=== PATIENT | male | born 1945 | race Caucasian/White ===

== ENCOUNTER 2021-08-08 18:57 | Observation (INO) ==
[2021-08-08 19:35] LABS: Basophils # (auto) 0.05 K/uL (0-0.2); Basophils % (auto) 0.5 %; Eosinophils # (auto) 0.13 K/uL (0-0.5); Eosinophils % (auto) 1.4 %; Hematocrit (blood only) 42.5 % (42-52); Hemoglobin 14.7 g/dL (14.0-18.0); Lymphocytes # (auto) 2.02 K/uL (1.2-3.4); Lymphocytes % (auto) 21.7 %; Mean Corpuscular Hemoglobin 30.7 pg (25-34); Mean Corpuscular Hgb Conc 34.6 g/dL (32-36); Mean Corpuscular Volume 88.7 fL (80-100); Mean Platelet Volume 10.7 fL (7.4-10.4); Monocytes # (auto) 0.61 K/uL (0.11-0.59); Monocytes % (auto) 6.6 %; Neutrophils % (auto) 69.8 %; Platelet Count 175 K/uL (130-400); RDW Coefficient of Variation 13.7 % (11.5-14.5); RDW Standard Deviation 44.8 fL (36.4-46.3); Red Blood Count 4.79 M/uL (4.7-6.1); White Blood Count 9.31 K/uL (4.8-10.8)
[2021-08-08] MEDS ORDERED: OPTIRAY 320 125ml IV ONE (19:35)
[2021-08-08 19:37] LABS: iSTAT Creatinine 0.9 mg/dl (0.6-1.3); iSTAT Ionized Calcium 1.18 mmol/l (1.12-1.32)
--- NOTE | 2021-08-08 19:37 | Emergency Department Note ---
History of Present Illness General Chief complaint: Neuro Symptoms/Deficit Stated complaint: SLURRED SPEECH Time Seen by Provider: 08/08/21 19:11 History of Present Illness Provider complaint: Slurred speech Onset (ago): minute(s) (40) Associated symptoms: no chest pain, no cough, no fever/chills, no headaches, no nausea/vomiting, no shortness of breath, no syncope or no weakness 75-year-old male with history of TIA presents emergency department with slurred speech. at bedside reports that at 6:30 PM he started slurring his speech. She states by the time they got to the emergency room it resolved. She reports she is concerned that the patient had a TIA. No chest pain difficulty breathing headache fall loss of consciousness melena hematochezia nausea vomiting diarrhea or hematuria. Home Medications Medication Instructions Recorded Confirmed Type aspirin 81 mg tablet,delayed 81 mg PO DAILY 08/08/21 08/08/21 History release carvedilol 6.25 mg tablet 6.25 mg PO BID 08/08/21 08/08/21 History clopidogrel 75 mg tablet 75 mg PO DAILY 08/08/21 08/08/21 History hydrochlorothiazide 12.5 mg tablet 12.5 mg PO DAILY 08/08/21 08/08/21 History lisinopril 10 mg tablet 10 mg PO DAILY 08/08/21 08/08/21 History nitroglycerin 0.4 mg sublingual 0.4 mg SUBLINGUAL .PRN/UD PRN 08/08/21 08/08/21 History tablet (Nitrostat) omega-3 fatty acids 1,000 mg PO DAILY 08/08/21 08/08/21 History rosuvastatin 40 mg tablet (Crestor) 40 mg PO DAILY 08/08/21 08/08/21 History tamsulosin 0.4 mg capsule 0.4 mg PO DAILY 08/08/21 08/08/21 History Allergies Allergy/AdvReac Type Severity Reaction Status Date / Time No Known Allergies Allergy Unverified 08/08/21 20:31 Past Med/Surg History Medical History (Updated 08/08/21 @ 22:57 by Maxx Pereira) HLD (hyperlipidemia) HTN (hypertension) No pertinent family history TIA (transient ischemic attack) Surgical History (Updated 08/08/21 @ 19:36 by Maxx Pereira) No pertinent past surgical history Social History Smoking Status: Current every day smoker Feels Safe at Home: Yes Review of Systems A total of 10 systems reviewed and were otherwise negative Physical Exam Vital Signs Vital Signs - 24 hr 08/08/21 19:06 08/08/21 19:23 08/08/21 19:46 Temperature 36.5 C Temperature Source Temporal Artery Scan Pulse Rate 123 H Pulse Rate [Right Finger] 94 H Pulse Rhythm [Right Finger] Respiratory Rate 18 16 Respiratory Effort / Characteristics Non-Labored Spontaneous Respiratory Depth Normal Respiratory Pattern Regular Blood Pressure 146/84 H Blood Pressure [Right Arm] 137/89 Blood Pressure Mean 104 Blood Pressure Mean [Right Arm] 105 Blood Pressure Position Sitting Pulse Oximetry 93 95 94 Oxygen Delivery Method Room Air Room Air Room Air Oxygen Flow Rate 0 Sepsis Recent Fever Within 48 Hours No Sepsis New/Unexplained Change in Mental Status No Sepsis Action Taken by Nursing No Action Required 08/08/21 21:18 Temperature Temperature Source Pulse Rate Pulse Rate [Right Finger] 116 H Pulse Rhythm [Right Finger] Regular Respiratory Rate 16 Respiratory Effort / Characteristics Respiratory Depth Respiratory Pattern Blood Pressure Blood Pressure [Right Arm] 124/84 Blood Pressure Mean Blood Pressure Mean [Right Arm] 97 Blood Pressure Position Pulse Oximetry 95 Oxygen Delivery Method Room Air Oxygen Flow Rate Sepsis Recent Fever Within 48 Hours Sepsis New/Unexplained Change in Mental Status Sepsis Action Taken by Nursing Physical Exam GENERAL: He is oriented to person, place, and time. He appears well-developed and well-nourished. He does not appear distressed. HENT: Exam performed. - Head: Normocephalic and atraumatic. - Right Ear: External ear normal. No mastoid tenderness. - Left Ear: External ear normal. No mastoid tenderness. - Mouth/Throat: The oropharynx is clear and moist. No trismus in the jaw. No dental abscesses or uvula swelling. No oropharyngeal exudate or tonsillar abscesses. EYES: Conjunctivae and EOM are normal. Pupils are equal, round, and reactive to light. Right eye exhibits no discharge. Left eye exhibits no discharge. No scleral icterus. NECK: Normal range of motion. Neck supple. No JVD present. No spinous process tenderness present. No carotid bruit present. No rigidity. No tracheal deviation and normal range of motion present. No Brudzinski's sign and no Kernig's sign noted. CV: Normal rate, regular rhythm, normal heart sounds and intact distal pulses. There is no peripheral edema. Palpable radial pulses bue. PULM/CHEST: Effort normal and breath sounds normal. No respiratory distress. No stridor. He has no wheezes. He has no rales. - Chest Wall: He exhibits no tenderness. ABD: The abdomen is soft. Bowel sounds are normal. He has no distension. No mass is present. There is no tenderness. There is no rebound, no guarding, no Grubbs's sign and no tenderness at McBurney's point. Rovsig negative. MUSC/SKEL: Normal range of motion. There is no peripheral edema, tenderness or deformity. LYMPH: No cervical adenopathy. NEURO: He is alert and oriented to person, place, and time. He has normal strength. No cranial nerve deficit or sensory deficit. Coordination and gait normal. GCS eye subscore is 4. GCS verbal subscore is 5. GCS motor subscore is 6. Cerebellar tests wnl. NIHSS: 0 SKIN: Skin is warm and dry. He is not diaphoretic. PSYCH: He has a normal mood and affect. Behavior is normal. Judgment and thought content normal. Course Course 1910: The patient was evaluated in room C11. A complete history and physical exam was performed Cardiac monitoring: An order was placed for continuous cardiac monitoring. The monitor shows a rate of 90 with sinus rhythm No code stroke called at this time as the patient has an NIH stroke scale of 0 and his symptoms have completely resolved. 2115: Vital signs stable. Labs within normal limits. Imaging shows no CVA or territorial infarct. 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 I discussed these imaging findings with the [place] teleneurologist Dr. Castano who stated there is nothing to do about this aneurysm. 2204: Vital signs stable. On reassessment the patient's NIH stroke scale remains 0. Patient states he does not feel like he is slurring his words and the states she does not feel patient is slurring words at this time. reports that she does not feel comfortable taking the patient home as they just moved back to the area and did not have doctors in the area. She states that when the patient got back from CAT scan he slurred his words for a few seconds and she is concerned. [facility]. Pickett's team will be notified. Administered Medications Discontinued Medications Ioversol (Optiray 320 125ml) 120 ml IV ONCE ONE Stop: 08/08/21 19:36 Last Admin: 08/08/21 19:39 Dose: 120 ml Documented by: [id number] Medical Decision Making Laboratory Data Result diagrams: 08/08/21 19:20 08/08/21 19:20 Lab Results 08/08/21 08/08/21 08/08/21 Range/Units 19:16 19:20 19:20 WBC 9.31 (4.8-10.8) K/uL RBC 4.79 (4.7-6.1) M/uL Hgb 14.7 (14.0-18.0) g/dL POC Hgb (14.0-18.0) g/dl Hct 42.5 (42-52) % POC Hct (42-52) % MCV 88.7 (80-100) fL MCH 30.7 (25-34) pg MCHC 34.6 (32-36) g/dL RDW Std Deviation 44.8 (36.4-46.3) fL RDW Coeff of Marily 13.7 (11.5-14.5) % Plt Count 175 (130-400) K/uL MPV 10.7 H (7.4-10.4) fL Immature Gran % (Auto) 0.0 % Neut % (Auto) 69.8 % Lymph % (Auto) 21.7 % [place] % (Auto) 6.6 % Eos % (Auto) 1.4 % Baso % (Auto) 0.5 % Neut # (Auto) 6.50 (1.4-6.5) K/uL Lymph # (Auto) 2.02 (1.2-3.4) K/uL [place] # (Auto) 0.61 H (0.11-0.59) K/uL Eos # (Auto) 0.13 (0-0.5) K/uL Baso # (Auto) 0.05 (0-0.2) K/uL Immature Gran # (Auto) 0.00 (0.00-0.02) K/uL PT (9.0-12.0) Seconds INR (0.9-1.1) APTT (21.0-31.0) Seconds PTT Ratio POC Sodium (135-144) mmol/L Sodium (136-145) mmol/L POC Potassium (3.3-5.0) mmol/L Potassium (3.5-5.1) mmol/L POC Chloride (101-112) mmol/L Chloride (98-107) mmol/L Carbon Dioxide (21-32) mmol/L POC Total CO2 (24-31) mmol/L Anion Gap (3-11) POC Anion Gap (16-25) mmol/L POC BUN (7-18) mg/dl BUN (6-23) mg/dl Creatinine (0.6-1.4) mg/dl POC Creatinine (0.6-1.3) mg/dl Est Cr Clr Drug Dosing ml/min Est GFR ( Amer) ml/min Est GFR (Non-Af Amer) ml/min BUN/Creatinine Ratio (10-20) Glucose (70-99(Fasting)) mg/dl POC Glucose 130 H (70-99) mg/dl POC Glucose (other) (70-99) mg/dl Calcium (8.5-10.1) mg/dl POC Ioniz Calcium Tacos (1.12-1.32) mmol/l Magnesium (1.7-2.4) mg/dl Total Bilirubin (0.2-1.0) mg/dl AST (13-39) U/L ALT (7-52) U/L Alkaline Phosphatase (34-104) U/L Troponin I (0-0.04) ng/ml Total Protein (6.0-8.3) gm/dl Albumin (3.4-5.0) gm/dl Globulin (2.5-4.0) gm/dl Albumin/Globulin Ratio (0.9-2) Blood Type A Negative Antibody Screen NEGATIVE 08/08/21 08/08/21 08/08/21 Range/Units 19:20 19:20 19:25 WBC (4.8-10.8) K/uL RBC (4.7-6.1) M/uL Hgb (14.0-18.0) g/dL POC Hgb 15.0 (14.0-18.0) g/dl Hct (42-52) % POC Hct 44 (42-52) % MCV (80-100) fL MCH (25-34) pg MCHC (32-36) g/dL RDW Std Deviation (36.4-46.3) fL RDW Coeff of Marily (11.5-14.5) % Plt Count (130-400) K/uL MPV (7.4-10.4) fL Immature Gran % (Auto) % Neut % (Auto) % Lymph % (Auto) % [place] % (Auto) % Eos % (Auto) % Baso % (Auto) % Neut # (Auto) (1.4-6.5) K/uL Lymph # (Auto) (1.2-3.4) K/uL [place] # (Auto) (0.11-0.59) K/uL Eos # (Auto) (0-0.5) K/uL Baso # (Auto) (0-0.2) K/uL Immature Gran # (Auto) (0.00-0.02) K/uL PT 10.7 (9.0-12.0) Seconds INR 1.0 (0.9-1.1) APTT 26.4 (21.0-31.0) Seconds PTT Ratio 1.0 POC Sodium 141 (135-144) mmol/L Sodium 140 (136-145) mmol/L POC Potassium 4.0 (3.3-5.0) mmol/L Potassium 4.0 (3.5-5.1) mmol/L POC Chloride 102 (101-112) mmol/L Chloride 106 (98-107) mmol/L Carbon Dioxide 26 (21-32) mmol/L POC Total CO2 25 (24-31) mmol/L Anion Gap 8 (3-11) POC Anion Gap 19.0 (16-25) mmol/L POC BUN 24 H (7-18) mg/dl BUN 24 H (6-23) mg/dl Creatinine 0.94 (0.6-1.4) mg/dl POC Creatinine 0.9 (0.6-1.3) mg/dl Est Cr Clr Drug Dosing 72.3 ml/min Est GFR ( Amer) 92.9 ml/min Est GFR (Non-Af Amer) 80.1 ml/min BUN/Creatinine Ratio 25.5 H (10-20) Glucose 130 H (70-99(Fasting)) mg/dl POC Glucose (70-99) mg/dl POC Glucose (other) 134 H (70-99) mg/dl Calcium 9.1 (8.5-10.1) mg/dl POC Ioniz Calcium Tacos 1.18 (1.12-1.32) mmol/l Magnesium 1.9 (1.7-2.4) mg/dl Total Bilirubin 0.4 (0.2-1.0) mg/dl AST 16 (13-39) U/L ALT 13 (7-52) U/L Alkaline Phosphatase 46 (34-104) U/L Troponin I 0.03 (0-0.04) ng/ml Total Protein 6.7 (6.0-8.3) gm/dl Albumin 4.3 (3.4-5.0) gm/dl Globulin 2.4 L (2.5-4.0) gm/dl Albumin/Globulin Ratio 1.8 (0.9-2) Blood Type Antibody Screen Imaging Data Radiologist's Impression: Chest X-Ray 08/08/21 19:17 XR chest 1V portable HISTORY: Slurred speech. Facial droop. COMPARISON: None. FINDINGS: There is mild elevation the right hemidiaphragm. The heart is mildly enlarged. A few bibasilar linear densities favor subsegmental atelectasis. Othe rwise, no focal lung consolidations to suggest pneumonia. No evidence for pulmonary edema. No pleural effusions, no pneumothorax. IMPRESSION: Mild cardiomegaly. Otherwise, no acute process within the chest. ACT 112: Negative or not required by law. Electronically signed by: Waqar Shah M.D. 08/08/2021 7:[address] 08/08/21 19:[address] DOSE: HISTORY: Slurred speech. Facial droop. Stroke Like Symptoms TECHNIQUE: Multiaxial CT images of the head were performed without the use of intravenous contrast. Automated exposure control was utilized for this study. A dose lowering technique was utilized adhering to the principles of ALARA. Comparison: None. Findings: The paranasal sinuses and mastoid air cells are clear. The calvarium and skull base are intact. The ventricles and sulci are within normal limits. There is no mass, hematoma, midline shift, or acute infarct. Impression: No acute intracranial abnormality. ACT 112: Negative or not required by law. Electronically signed by: Waqar Shah M.D. 08/08/2021 8:07 PM Head CTA 08/08/21 19:17 HEAD & NECK CTA HISTORY: Slurred speech. Facial droop. Stroke Like Symptoms TECHNIQUE: Multiaxial CT images of the head were performed following the intravenous administration of contrast to evaluate the major cerebral vessels. Multiaxial CT images of the neck were also performed following the intravenous administration of contrast to evaluate the major cervical vessels. Maximum intensity projection images were also obtained. A dose lowering technique was utilized adhering to the principles of ALARA. COMPARISON: None. FINDINGS: There is no mass, hematoma, midline shift, or acute infarct. Visualized intracranial internal carotid arteries, distal vertebral arteries, and basilar artery are widely patent. There is no significant stenosis or occlusion seen within the bilateral ACAs, MCAs, or vaccine specialist. Major dural venous sinuses are patent. There is a 4 mm right MCA bifurcation aneurysm best seen on axial image 95. The aortic arch and proximal great vessels are widely patent. There is no significant stenosis, occlusion, or dissection identified within the bilateral common carotid, internal carotid, or vertebral arteries. Best seen on axial image 208 there is a 1 cm polyp within the posterior hypopharynx at the level of the epiglottis. IMPRESSION: 1. No significant stenosis or occlusion within the [place]. 2. No significant stenosis, occlusion, or dissection identified within the carotid or vertebral arteries. 3. 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 4. A 1 cm polyp within the posterior hypopharynx at the level of the epiglottis. Direct visualization recommended for further evaluation. ACT 112: Negative or not required by law. Electronically signed by: Waqar Shah M.D. 08/08/2021 8:15 PM Neck CTA 08/08/21 19:17 HEAD & NECK CTA HISTORY: Slurred speech. Facial droop. Stroke Like Symptoms TECHNIQUE: Multiaxial CT images of the head were performed following the intravenous administration of contrast to evaluate the major cerebral vessels. Multiaxial CT images of the neck were also performed following the intravenous administration of contrast to evaluate the major cervical vessels. Maximum inte nsity projection images were also obtained. A dose lowering technique was utilized adhering to the principles of ALARA. COMPARISON: None. FINDINGS: There is no mass, hematoma, midline shift, or acute infarct. Visualized intracranial internal carotid arteries, distal vertebral arteries, and basilar artery are widely patent. There is no significant stenosis or occlusion seen within the bilateral ACAs, MCAs, or vaccine specialist. Major dural venous sinuses are patent. There is a 4 mm right MCA bifurcation aneurysm best seen on axial image 95. The aortic arch and proximal great vessels are widely patent. There is no significant stenosis, occlusion, or dissection identified within the bilateral common carotid, internal carotid, or vertebral arteries. Best seen on axial image 208 there is a 1 cm polyp within the posterior hypopharynx at the level of the epiglottis. IMPRESSION: 1. No significant stenosis or occlusion within the [place]. 2. No significant stenosis, occlusion, or dissection identified within the carotid or vertebral arteries. 3. 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 4. A 1 cm polyp within the posterior hypopharynx at the level of the epiglottis. Direct visualization recommended for further evaluation. ACT 112: Negative or not required by law. Electronically signed by: Waqar Shah M.D. 08/08/2021 8:15 PM ECG Data Indication: + weakness Rate (beats per minute): 98 Rhythm: + normal sinus ECG Intervals/blocks: + Normal QRS, + Normal NH and + Normal QT-c ECG ST segments: + Normal ST segments MDM Narrative 1910: The patient was evaluated in room C11. A complete history and physical exam was performed Cardiac monitoring: An order was placed for continuous cardiac monitoring. The monitor shows a rate of 90 with sinus rhythm No code stroke called at this time as the patient has an NIH stroke scale of 0 and his symptoms have completely resolved. 2115: Vital signs stable. Labs within normal limits. Imaging shows no CVA or territorial infarct. 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 I discussed these imaging findings with the [place] teleneurologist Dr. Castano who stated there is nothing to do about this aneurysm. 2204: Vital signs stable. On reassessment the patient's NIH stroke scale remains 0. Patient states he does not feel like he is slurring his words and the states she does not feel patient is slurring words at this time. reports that she does not feel comfortable taking the patient home as they just moved back to the area and did not have doctors in the area. She states that when the patient got back from CAT scan he slurred his words for a few seconds and she is concerned. Patient be admitted to the [facility] any hospitalist team for TIA. Dr. Pickett's team will be notified. Impression & Plan Brain TIA Discharge Plan Visit Data Chief Complaint: Neuro Symptoms/Deficit Stated Complaint: SLURRED SPEECH Discharge Problem: Brain TIA Patient Disposition: Admitted As Inpatient Forms Stand Alone Forms: [facility] Prescriptions Prescriptions: No Action clopidogrel 75 mg tablet 75 mg PO DAILY RF: 0 aspirin [Aspir-Low] 81 mg Tablet,Delayed Release (Dr/Ec) 81 mg PO DAILY RF: 0 nitroglycerin [Nitrostat] 0.4 mg tablet, sublingual 0.4 mg sublingual .PRN/UD PRN (Reason: Chest Pain) RF: 0 lisinopril 10 mg tablet 10 mg PO DAILY RF: 0 rosuvastatin [Crestor] 40 mg tablet 40 mg PO DAILY RF: 0 [place] 3 Fish Oil Concentrate Capsule 1,000 mg PO DAILY RF: 0 tamsulosin 0.4 mg Capsule 0.4 mg PO DAILY RF: 0 hydrochlorothiazide 12.5 mg Tablet 12.5 mg PO DAILY RF: 0 carvedilol 6.25 mg Tablet 6.25 mg PO BID RF: 0 Referrals Referrals: PCP,NO [Primary Care Provider] -
[2021-08-08 19:45] LABS: Partial Thromboplastin Time 26.4 Seconds (21.0-31.0); Prothrombin Time 10.7 Seconds (9.0-12.0)
[2021-08-08 19:59] LABS: Troponin I 0.03 ng/ml (0-0.04)
--- NOTE | 2021-08-08 20:01 | XRay Report ---
XR chest 1V portable HISTORY: Slurred speech. Facial droop. COMPARISON: None. FINDINGS: There is mild elevation the right hemidiaphragm. The heart is mildly enlarged. A few bibasi lar linear densities favor subsegmental atelectasis. Otherwise, no focal lung consolidations to sugge st pneumonia. No evidence for pulmonary edema. No pleural effusions, no pneumothorax. IMPRESSION: Mild cardiomegaly. Otherwise, no acute process within the chest. ACT 112: Negative or not required by law. Electronically signed by: Waqar Shah M.D. 08/08/2021 7:59 PM
--- NOTE | 2021-08-08 20:09 | CT Scan Report ---
HEAD CT NONCONTRAST CT DOSE: HISTORY: Slurred speech. Facial droop. Stroke Like Symptoms TECHNIQUE: Multiaxial CT images of the head were performed without the use of intravenous contrast. A utomated exposure control was utilized for this study. A dose lowering technique was utilized adheri ng to the principles of ALARA. Comparison: None. Findings: The paranasal sinuses and mastoid air cells are clear. The calvarium and skull base are int act. The ventricles and sulci are within normal limits. There is no mass, hematoma, midline shift, or acute infarct. Impression: No acute intracranial abnormality. ACT 112: Negative or not required by law. Electronically signed by: Waqar Shah M.D. 08/08/2021 8:07 PM
[2021-08-08 20:18] LABS: Albumin Globulin Ratio 1.8 (0.9-2); Albumin Level 4.3 gm/dl (3.4-5.0); BUN Creatinine Ratio 25.5 (10-20); Bilirubin,Total 0.4 mg/dl (0.2-1.0); Calcium 9.1 mg/dl (8.5-10.1); Creatinine Clr Calc Pharmacy 72.3 ml/min; Est GFR (African American) 92.9 ml/min; Est GFR (Non-African American) 80.1 ml/min; Globulin 2.4 gm/dl (2.5-4.0); Magnesium 1.9 mg/dl (1.7-2.4); Total Protein 6.7 gm/dl (6.0-8.3)
--- NOTE | 2021-08-08 20:18 | CT Scan Report ---
HEAD & NECK CTA HISTORY: Slurred speech. Facial droop. Stroke Like Symptoms TECHNIQUE: Multiaxial CT images of the head were performed following the intravenous administration o f contrast to evaluate the major cerebral vessels. Multiaxial CT images of the neck were also perform ed following the intravenous administration of contrast to evaluate the major cervical vessels. Maxim um intensity projection images were also obtained. A dose lowering technique was utilized adhering to the principles of ALARA. COMPARISON: None. FINDINGS: There is no mass, hematoma, midline shift, or acute infarct. Visualized intracranial internal carotid arteries, distal vertebral arteries, and basilar artery are widely patent. There is no significant s tenosis or occlusion seen within the bilateral ACAs, MCAs, or jewelry salesperson. Major dural venous sinuses are pa tent. There is a 4 mm right MCA bifurcation aneurysm best seen on axial image 95. The aortic arch and proximal great vessels are widely patent. There is no significant stenosis, occ lusion, or dissection identified within the bilateral common carotid, internal carotid, or vertebral arteries. Best seen on axial image 208 there is a 1 cm polyp within the posterior hypopharynx at the level of the epiglottis. IMPRESSION: 1. No significant stenosis or occlusion within the [place]. 2. No significant stenosis, occlusion, or dissection identified within the carotid or vertebral arter ies. 3. 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 4. A 1 cm polyp within the posterior hypopharynx at the level of the epiglottis. Direct visualization recommended for further evaluation. ACT 112: Negative or not required by law. Electronically signed by: Waqar Shah M.D. 08/08/2021 8:15 PM
--- NOTE | 2021-08-08 20:18 | CT Scan Report ---
HEAD & NECK CTA HISTORY: Slurred speech. Facial droop. Stroke Like Symptoms TECHNIQUE: Multiaxial CT images of the head were performed following the intravenous administration o f contrast to evaluate the major cerebral vessels. Multiaxial CT images of the neck were also perform ed following the intravenous administration of contrast to evaluate the major cervical vessels. Maxim um intensity projection images were also obtained. A dose lowering technique was utilized adhering to the principles of ALARA. COMPARISON: None. FINDINGS: There is no mass, hematoma, midline shift, or acute infarct. Visualized intracranial internal carotid arteries, distal vertebral arteries, and basilar artery are widely patent. There is no significant s tenosis or occlusion seen within the bilateral ACAs, MCAs, or weed controller. Major dural venous sinuses are pa tent. There is a 4 mm right MCA bifurcation aneurysm best seen on axial image 95. The aortic arch and proximal great vessels are widely patent. There is no significant stenosis, occ lusion, or dissection identified within the bilateral common carotid, internal carotid, or vertebral arteries. Best seen on axial image 208 there is a 1 cm polyp within the posterior hypopharynx at the level of the epiglottis. IMPRESSION: 1. No significant stenosis or occlusion within the [place]. 2. No significant stenosis, occlusion, or dissection identified within the carotid or vertebral arter ies. 3. 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 4. A 1 cm polyp within the posterior hypopharynx at the level of the epiglottis. Direct visualization recommended for further evaluation. ACT 112: Negative or not required by law. Electronically signed by: Waqar Shah M.D. 08/08/2021 8:15 PM
--- NOTE | 2021-08-08 22:56 | History & Physical Report ---
Date of Service August 08, 2021 Assessment & Plan (1) Slurred speech: Plan: Slurred speech/new TIA- The patient will be admitted to telemetry for serial cardiac enzymes, serial EKG's, cardiac rhythm monitoring and a 2-D echocardiogram with Dopplers. CT head negative, CTA head neck significant for 4 mm right MCA bifurcation aneurysm. Order MRI of brain without contrast, and MRA of head without contrast, to be done about [address] TIA without thrombolytics order set (2) Brain TIA: Plan: History of previous brain TIA approximately 4 years ago, with symptoms had completely resolved (3) BPH w urinary obs/LUTS: Plan: Continue tamsulosin 0.4 mg in the evening (4) Tobacco use disorder: Plan: Smokes 1 pack/day Cessation counseling (5) HLD (hyperlipidemia): Plan: Continue rosuvastatin 40 mg daily (6) HTN (hypertension): Plan: Continue carvedilol 6.25 mg p.o. twice daily, HCTZ and lisinopril History of Present Illness Chief Complaint: The patient presents to the emergency department with acute onset of slurred speech, of brief duration, that his noted after he came in from outdoors where he was having a smoke Primary Care Provider: NO PCP The patient is a 75-year-old male with a past medical history including hyperlipidemia, BPH with LUTS, hypertension, and a TIA about 4 years ago, with symptoms that completely resolved, and presents with similar but more severe symptoms this evening. The patient continues to smoke 1 pack/day, and as noted without side having a smoke, when upon coming inside, his noted that he had a slurred speech, that did completely resolved. He has been taking all his medications as directed. He had no other symptoms such as weakness in extremities or loss of sensation, difficulty swallowing. Allergies Allergy/AdvReac Type Severity Reaction Status Date / Time No Known Allergies Allergy Unverified 08/08/21 20:31 Home Medications Medication Instructions Recorded Confirmed Type aspirin 81 mg tablet,delayed 81 mg PO DAILY 08/08/21 08/08/21 History release carvedilol 6.25 mg tablet 6.25 mg PO BID 08/08/21 08/08/21 History clopidogrel 75 mg tablet 75 mg PO DAILY 08/08/21 08/08/21 History hydrochlorothiazide 12.5 mg tablet 12.5 mg PO DAILY 08/08/21 08/08/21 History lisinopril 10 mg tablet 10 mg PO DAILY 08/08/21 08/08/21 History nitroglycerin 0.4 mg sublingual 0.4 mg SUBLINGUAL .PRN/UD PRN 08/08/21 08/08/21 History tablet (Nitrostat) omega-3 fatty acids 1,000 mg PO DAILY 08/08/21 08/08/21 History rosuvastatin 40 mg tablet (Crestor) 40 mg PO DAILY 08/08/21 08/08/21 History tamsulosin 0.4 mg capsule 0.4 mg PO DAILY 08/08/21 08/08/21 History Past Med/Surg History Medical History (Updated 08/09/21 @ 02:22 by Alonzo Lopez MD) BPH w urinary obs/LUTS HLD (hyperlipidemia) HTN (hypertension) No pertinent family history TIA (transient ischemic attack) Tobacco use disorder Surgical History (Updated 08/08/21 @ 19:36 by Maxx Pereira) No pertinent past surgical history Social History Smoking Status: Current every day smoker Hx Alcohol Use: No Hx Substance Use: No Preferred Language: Latvian Communication Ability: Effective Legislative Advocate Required: No Beliefs That Will Affect Care: None Current Living Situation: Spouse Other Information That Helps Us Care for You: No Feels Safe at Home: Yes Safety Concerns: Feels Safe At This Time Review of Systems Review of Systems: The patient denies chest pain, palpitations, shortness of breath, dyspnea on exertion, cough, lower extremity swelling, sore throat, fevers, chills, sweats, weight change, fatigue, nausea, vomiting, diarrhea , constipation, abdominal pain, pelvic pain, blood in urine or stool, dysuria, urinary frequency or urgency, lightheadedness, dizziness, headache, memory loss, loss of consciousness, rash, abnormal bruising or bleeding, imbalance, focal or generalized weakness, numbness or tingling in arms or legs, generalized arthralgias or myalgias, back or neck pain, or night sweats. The review of systems is otherwise negative other than for that already noted above, and at least 10 systems have been reviewed. Physical Exam Physical Exam: The patient is awake, alert and oriented 3, well developed and well nourished, normocephalic and atraumatic, lying in bed and in no acute distress. HEENT--PERRL, EOMI, mucous membranes and oropharynx normal. Neck--supple. No JVD. No bruits. Thyroid normal, trachea midline, no adenopathy. Heart--normal S1 and S2. No murmurs, rubs or gallops. Lungs--clear bilaterally, no respiratory distress, no accessory muscle use. Abdomen--normal bowel sounds and soft. Nontender. Nondistended, no hernias or masses, no organomegaly. Extremities--no cyanosis or clubbing. No edema. Dermatologic--normal skin turgor, normal color, no abnormal lymph nodes, no rash. Neurologic--cranial nerves II through XII grossly intact. Rheumatologic--normal range of motion. Psychiatric--normal affect. Results & Data Results & Data ([facility]) Vital Signs (Past 12 Hours) Vital Signs Temp Pulse Pulse Resp BP BP Pulse Ox 08/08/21 21:18 116 H 16 124/84 95 08/08/21 19:46 94 08/08/21 19:23 94 H 16 137/89 95 08/08/21 19:06 36.5 C 123 H 18 146/84 H 93 Laboratory Results Laboratory Results WBC 9.31 K/uL (4.8-10.8) 08/08/21 19: RBC 4.79 M/uL (4.7-6.1) 08/08/21 19:20 Hgb 14.7 g/dL (14.0-18.0) 08/08/21 19:20 POC Hgb 15.0 g/dl (14.0-18.0) 08/08/21 19:25 Hct 42.5 % (42-52) 08/08/21 19:20 POC Hct 44 % (42-52) 08/08/21 19:25 MCV 88.7 fL (80-100) 08/08/21 19: MCH 30.7 pg (25-34) 08/08/21 19:20 MCHC 34.6 g/dL (32-36) 08/08/21 19:20 RDW Std Deviation 44.8 fL (36.4-46.3) 08/08/21 19:20 RDW Coeff of Marily 13.7 % (11.5-14.5) 08/08/21: Plt Count 175 K/uL (130-400) 08/08/21 19:20 MPV 10.7 fL (7.4-10.4) H 08/08/21 19:20 Immature Gran % (Auto) 0.0 % 08/08/21 19:20 Neut % (Auto) 69.8 % 08/08/21 19:20 Lymph % (Auto) 21.7 % 08/08/21 19:20 [place]un % (Auto) 6.6 % 08/08/21 19:20 Eos % (Auto) 1.4 % 08/08/21 19:20 Baso % (Auto) 0.5 % 08/08/21 19:20 Neut # (Auto) 6.50 K/uL (1.4-6.5) 08/08/21: Lymph # (Auto) 2.02 K/uL (1.2-3.4) 08/08/21 19:20 [place]un # (Auto) 0.61 K/uL (0.11-0.59) H 08/08/21 19:20 Eos # (Auto) 0.13 K/uL (0-0.5) 08/08/21:20 Baso # (Auto) 0.05 K/uL (0-0.2) 08/08/21 19:20 Immature Gran # (Auto) 0.00 K/uL (0.00-0.02) 08/08/21:20 PT 10.7 Seconds (9.0-12.0) 08/08/21 19:20 INR 1.0 (0.9-1.1) 08/08/21 19:20 APTT 26.4 Seconds (21.0-31.0) 08/08/21 19:20 PTT Ratio 1.0 08/08/21 19:20 POC Sodium 141 mmol/L (135-144) 08/08/21 19:25 Sodium 140 mmol/L (136-145) 08/08/21:20 POC Potassium 4.0 mmol/L (3.3-5.0) 08/08/21 19:25 Potassium 4.0 mmol/L (3.5-5.1) 08/08/21 19:20 POC Chloride 102 mmol/L (101-112) 08/08/21 19:25 Chloride 106 mmol/L (98-107) 08/08/21 19:20 Carbon Dioxide 26 mmol/L (21-32) 08/08/21 19:20 POC Total CO2 25 mmol/L (24-31) 08/08/21 19:25 Anion Gap 8 (3-11) 08/08/21 19:20 POC Anion Gap 19.0 mmol/L (16-25) 08/08/21 19:25 POC BUN 24 mg/dl (7-18) H 08/08/21 19:25 BUN 24 mg/dl (6-23) H 08/08/21 19:20 Creatinine 0.94 mg/dl (0.6-1.4) 08/08/21 19:20 POC Creatinine 0.9 mg/dl (0.6-1.3) 08/08/21 19:25 Est Cr Clr Drug Dosing 72.3 ml/min 08/08/21 19:20 Est GFR ( Amer) 92.9 ml/min 08/08/21 19:20 Est GFR (Non-Af Amer) 80.1 ml/min 08/08/21 19:20 BUN/Creatinine Ratio 25.5 (10-20) H 08/08/21 19:20 Glucose 130 mg/dl (70-99(Fasting)) H 08/08/21 19:20 POC Glucose 130 mg/dl (70-99) H 08/08/21 19:16 POC Glucose (other) 134 mg/dl (70-99) H 08/08/21 19:25 Calcium 9.1 mg/dl (8.5-10.1) 08/08/21 19:20 POC Ioniz Calcium Atcos 1.18 mmol/l (1.12-1.32) 08/08/21 19:25 Magnesium 1.9 mg/dl (1.7-2.4) 08/08/21 19:20 Total Bilirubin 0.4 mg/dl (0.2-1.0) 08/08/21 19:20 AST 16 U/L (13-39) 08/08/21 19:20 ALT 13 U/L (7-52) 08/08/21 19:20 Alkaline Phosphatase 46 U/L (34-104) 08/08/21 19:20 Troponin I 0.03 ng/ml (0-0.04) 03/15/22 19:20 Total Protein 6.7 gm/dl (6.0-8.3) 08/08/21 19:20 Albumin 4.3 gm/dl (3.4-5.0) 08/08/21 19:20 Globulin 2.4 gm/dl (2.5-4.0) L 08/08/21 19:20 Albumin/Globulin Ratio 1.8 (0.9-2) 08/08/21 19:20 SARS-CoV-2, RNA, NAAT NEGATIVE (NEGATIVE) 08/08/21 Unknown Blood Type A Negative 08/08/21 19:20 Antibody Screen NEGATIVE 08/08/21 19:20 Impressions Chest X-Ray 08/08/21 19:17 XR chest 1V portable HISTORY: Slurred speech. Facial droop. COMPARISON: None. FINDINGS: There is mild elevation the right hemidiaphragm. The heart is mildly enlarged. A few bibasilar linear densities favor subsegmental atelectasis. Otherwise, no focal lung consolidations to suggest pneumonia. No evidence for pulmonary edema. No pleural effusions, no pneumothorax. IMPRESSION: Mild cardiomegaly. Otherwise, no acute process within the chest. ACT 112: Negative or not required by law. Electronically signed by: Waqar Shah M.D. 08/08/2021 7:[address] 08/08/21 19:[address] DOSE: HISTORY: Slurred speech. Facial droop. Stroke Like Symptoms TECHNIQUE: Multiaxial CT images of the head were performed without the use of intravenous contrast. Automated exposure control was utilized for this study. A dose lowering technique was utilized adhering to the principles of ALARA. Comparison: None. Findings: The paranasal sinuses and mastoid air cells are clear. The calvarium and skull base are intact. The ventricles and sulci are within normal limits. There is no mass, hematoma, midline shift, or acute infarct. Impression: No acute intracranial abnormality. ACT 112: Negative or not required by law. Electronically signed by: Waqar Shah M.D. 08/08/2021 8:07 PM Head CTA 08/08/21 19:17 HEAD & NECK CTA HISTORY: Slurred speech. Facial droop. Stroke Like Symptoms TECHNIQUE: Multiaxial CT images of the head were performed following the intravenous administration of contrast to evaluate the major cerebral vessels. Multiaxial CT images of the neck were also performed following the intravenous administration of contrast to evaluate the major cervical vessels. Maximum intensity projection images were also obtained. A dose lowering technique was utilized adhering to the principles of ALARA. COMPARISON: None. FINDINGS: There is no mass, hematoma, midline shift, or acute infarct. Visualized intracranial internal carotid arteries, distal vertebral arteries, and basilar artery are widely patent. There is no significant stenosis or occlusion seen within the bilateral ACAs, MCAs, or oil field equipment mechanic. Major dural venous sinuses are patent. There is a 4 mm right MCA bifurcation aneurysm best seen on axial image 95. The aortic arch and proximal great vessels are widely patent. There is no significant stenosis, occlusion, or dissection identified within the bilateral common carotid, internal carotid, or vertebral arteries. Best seen on axial image 208 there is a 1 cm polyp within the posterior hypopharynx at the level of the epiglottis. IMPRESSION: 1. No significant stenosis or occlusion within the [place]. 2. No significant stenosis, occlusion, or dissection identified within the carotid or vertebral arteries. 3. 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 4. A 1 cm polyp within the posterior hypopharynx at the level of the epiglottis. Direct visualization recommended for further evaluation. ACT 112: Negative or not required by law. Electronically signed by: Waqar Shah M.D. 08/08/2021 8:15 PM Neck CTA 08/08/21 19:17 HEAD & NECK CTA HISTORY: Slurred speech. Facial droop. Stroke Like Symptoms TECHNIQUE: Multiaxial CT images of the head were performed following the intravenous administration of contrast to evaluate the major cerebral vessels. Multiaxial CT images of the neck were also performed following the intravenous administration of contrast to evaluate the major cervical vessels. Maximum intensity projection images were also obtained. A dose lowering technique was utilized adhering to the principles of ALARA. COMPARISON: None. FINDINGS: There is no mass, hematoma, midline shift, or acute infarct. Visualized intracranial internal carotid arteries, distal vertebral arteries, and basilar artery are widely patent. There is no significant stenosis or occlusion seen within the bilateral ACAs, MCAs, or oil field equipment mechanic. Major dural venous sinuses are patent. There is a 4 mm right MCA bifurcation aneurysm best seen on axial image 95. The aortic arch and proximal great vessels are widely patent. There is no significant stenosis, occlusion, or dissection identified within the bilateral common carotid, internal carotid, or vertebral arteries. Best seen on axial image 208 there is a 1 cm polyp within the posterior hypopharynx at the level of the epiglottis. IMPRESSION: 1. No significant stenosis or occlusion within the [place]. 2. No significant stenosis, occlusion, or dissection identified within the carotid or vertebral arteries. 3. 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 4. A 1 cm polyp within the posterior hypopharynx at the level of the epiglottis. Direct visualization recommended for further evaluation. ACT 112: Negative or not required by law. Electronically signed by: Waqar Shah M.D. 08/08/2021 8:15 PM Code Status & VTE Plan Code Status Full code VTE Prophylaxis Plan VTE Prophylaxis will be ordered: Yes PG Care Time/CCT Total # of Minutes Spent Total Time Spent with Patient: Total time spent is greater than 50% in coordination of care (as documented) at patient's floor/unit and/or counseling patient: Coding Level of Care Code INT OBSERVATION CARE 70M LVL 3 Diagnoses BPH w urinary obs/LUTS N40.1; N13.8 Tobacco use disorder F17.200 Brain TIA G45.9 HLD (hyperlipidemia) E78.5 HTN (hypertension) I10 Slurred speech R47.81
[2021-08-09] MEDS ORDERED: ACETAMINOPHEN 325 MG TAB PO PRN (00:50)
[2021-08-09] MEDS ORDERED: ONDANSETRON INJ 2 MG/ML 2 ML VIAL IV PRN (00:50)
[2021-08-09] MEDS ORDERED: PHARMACIST DISCHARGE MED REC CONSULT PRN (00:50)
[2021-08-09] MEDS ORDERED: NITROGLYCERIN SL 0.4 MG/TAB TAB SL PRN (00:50)
[2021-08-09] MEDS ORDERED: NSS + 20MEQ KCL 20 MEQ/1,000 ML BAG IV SCH (01:15)
--- NOTE | 2021-08-09 06:55 | Magnetic Resonance Report ---
MRI OF THE BRAIN WITHOUT IV CONTRAST CLINICAL HISTORY: Transient ischemic attack. COMPARISON STUDY: CT of the brain dated 08/08/2021. TECHNIQUE: MRI of the brain was performed utilizing various T1 and T2-weighted sequences in the axial , sagittal, and coronal planes. IV contrast was not administered for this examination. FINDINGS: Brain parenchyma: There is age-related involutional change noting minimal microangiopathic disease. T here is no hemorrhage or mass effect. There is no restricted diffusion to suggest acute ischemia. Gra y-white matter differentiation is preserved. No extra-axial fluid collection is seen. The cerebellar tonsils are normal in configuration. Ventricles, sulci, and cisterns: Prominent secondary to involutional change. Pituitary and sella: Unremarkable. Intracranial vasculature: Normal flow voids are maintained at the skull base. Orbits: The bony orbits are grossly intact. Orbital contents are normal in appearance. Sinuses and mastoids: Clear. Calvarium: Unremarkable. Cervical cord: Partially visualized cervical spinal cord is normal in morphology and signal intensity . Soft tissues: A 1.3 cm sebaceous cyst overlies the right parotid gland. IMPRESSION: No acute intracranial abnormality. ACT 112: Negative or not required by law. Electronically signed by: Eduar Reynaga M.D. 08/09/2021 6:54 AM
--- NOTE | 2021-08-09 06:59 | Magnetic Resonance Report ---
MRA OF THE INTRACRANIAL CIRCULATION WITHOUT CONTRAST CLINICAL HISTORY: Transient ischemic attack. Slurred speech. COMPARISON STUDY: Head CT and CTA of the head August 08, 2021. TECHNIQUE: Utilizing a 1.5 [place] magnet and 3-D [id number] technique, unenhanced MRA of the intra cranial circulation was obtained. FINDINGS: The bilateral M1, M2, A1 and A2 segments are patent. This exam is mildly compromised by mot ion artifact. The 4 mm right MCA bifurcation aneurysm shown on CTA of the head of August 08, 2014 is n ot well visualized on this exam. This may be due to motion artifact. No central vessel occlusion is i dentified. Posterior circulation is intact. IMPRESSION: 1. No central vessel occlusion. 2. The 4 mm right MCA bifurcation aneurysm shown on CTA of August 08, 2021 is not well visualized on t his exam, possibly due to motion artifact. ACT 112: Negative or not required by law. Electronically signed by: Tamir Vanegas M.D. 08/09/2021 6:58 AM
[2021-08-09 07:11] LABS: Basophils # (auto) 0.04 K/uL (0-0.2); Basophils % (auto) 0.5 %; Eosinophils # (auto) 0.12 K/uL (0-0.5); Eosinophils % (auto) 1.6 %; Hematocrit (blood only) 39.7 % (42-52); Hemoglobin 13.5 g/dL (14.0-18.0); Lymphocytes # (auto) 1.01 K/uL (1.2-3.4); Lymphocytes % (auto) 13.8 %; Mean Corpuscular Volume 88.2 fL (80-100); Mean Platelet Volume 10.1 fL (7.4-10.4); Monocytes # (auto) 0.72 K/uL (0.11-0.59); Monocytes % (auto) 9.8 %; Neutrophils # (auto) 5.43 K/uL (1.4-6.5); Neutrophils % (auto) 74.3 %; Platelet Count 149 K/uL (130-400); RDW Coefficient of Variation 13.8 % (11.5-14.5); White Blood Count 7.32 K/uL (4.8-10.8)
[2021-08-09 07:29] LABS: Estimated Average Glucose 140 mg/dl; Hemoglobin A1C 6.5 % (4.5-5.6)
[2021-08-09 07:34] LABS: Troponin I 0.03 ng/ml (0-0.04)
[2021-08-09 07:35] LABS: BUN Creatinine Ratio 22.7 (10-20); Calcium 8.5 mg/dl (8.5-10.1); Chol HDL Ratio 3.1 (0-5); Creatinine Clr Calc Pharmacy 77.2 ml/min; Est GFR (African American) 98.8 ml/min; Est GFR (Non-African American) 85.2 ml/min; Potassium 4.2 mmol/L (3.5-5.1)
[2021-08-09] MEDS ORDERED: ASPIRIN 81 MG ECTAB PO SCH (09:00)
[2021-08-09] MEDS ORDERED: ROSUVASTATIN CALCIUM 20 MG TAB PO SCH (09:00)
[2021-08-09] MEDS ORDERED: lisinopril 10 MG TAB PO SCH (09:00)
[2021-08-09] MEDS ORDERED: TAMSULOSIN HCL 0.4 MG CAP PO SCH (09:00)
[2021-08-09] MEDS ORDERED: hydroCHLOROthiazide 25 MG TAB PO SCH (09:00)
[2021-08-09] MEDS ORDERED: OMEGA-3 (PURIFIED FISH OIL) 1 GM CAP PO SCH (09:00)
[2021-08-09] MEDS ORDERED: CLOPIDOGREL BISULFATE 75 MG TAB PO SCH (09:00)
[2021-08-09] MEDS ORDERED: carvediloL 6.25 MG TAB PO SCH (09:00)
[2021-08-09] MEDS ORDERED: ENOXAPARIN INJ 40 MG/0.4 ML SYR SQ SCH (09:00)
--- NOTE | 2021-08-09 09:46 | Neurology Consultation ---
Date of Consultation August 09, 2021 Assessment & Plan (1) Brain TIA: (2) Slurred speech: (3) Cerebral aneurysm, nonruptured: This patient had a brief episode of dysarthria and possible right facial droop with left hand tingling that has all resolved. This is consistent with a transient ischemic attack most likely in the anat secondary to small vessel ischemic disease. Currently his neurologic examination is nonfocal without meningeal signs or encephalopathy. He has no subjective symptoms currently. Risk factors for stroke include long-standing continued cigarette smoking and the history of hypertension (reasonably well controlled but a little high when he came the emergency room). His glucose is mildly high with an elevated hemoglobin A1c of 6.5. He does have a history of dyslipidemia but his lipids are nicely controlled on his current dose of rosuvastatin. 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 This is small and has a very low risk of rupture or progression (an incidental finding). Recommendations: 1. Stop cigarette smoking. I informed the patient that unless he stops smoking we are are likely not going to be able to help prevent strokes and TIAs even with medication. 2. add 81 milligram aspirin to the 75 milligram clopidogrel. Take both together for 3 weeks and then dropped the aspirin and remain on clopidogrel. 3. There is no need to change his stat. He is getting excellent control on the current dose of rosuvastatin 4. Control blood pressure as you are doing , aiming for a mean arterial pressure of 95-100. 5. Awaiting echocardiogram results. 6. follow up with Neurology in 2-3 weeks (with PA). We are likely going have to follow this aneurysm- likely follow-up CT angiography in 6 months. 7. this patient needs to establish with a primary care physician in this town. 8. Otherwise, I have no further recommendations, contact me if I can be of further assistance. Overall, I spent a total of 120 minutes with this case including review of records, review of MRI films, direct evaluation the patient at bedside, and discussion of the case with the patient and at bedside, RN, and Bindu Marie PA-C, including differential diagnosis and treatment options. History of Present Illness Reason for Consultation: patient is a 75-year-old, who I was asked to see the request of Dr. Lopez, for neurologic consultation regarding TIA. Requesting Physician: Dr. Lopez Attending Physician: Epi Lindsay History of Present Illness History is obtained from the patient and his who is linked via telephone in the room. This patient has a history of hypertension and dyslipidemia. In 2004 he had an MRI requiring an LAD shunt. He was put on aspirin 81 milligrams daily. He remained on this until 2018 when he had an episode of left hand weakness and clumsiness with some mild slurred speech lasting about an hour and then resolving. Evaluation after this revealed no stroke and this was labeled a TIA. At that time the aspirin was discontinued and he was initiated on 75 milligrams clopidogrel daily. He has remained on this ever since. Patient has done well until August 08. 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 He came in around 1830 and his noted that he had significant garbled and then slurred speech. This lasted about 10 minutes. She also felt that the right face was a little droopy or than normal. The patient himself had some nonspecific tingling in the left hand. They arrived at the emergency room at 19:06 on August 08. Blood pressure was 146/84, temperature 36.5, pulse 123, respiratory rate 18, and O2 saturation 93 percent. Apparently the patient had another episode of slurred speech lasting a couple of minutes while in the ER heard by his and a nurse. He had no other symptoms or issues. Neurologic examination was unremarkable with no focal findings an NIH stroke scale was 0. CBC and Chem profile were largely unremarkable. Glucose was borderline high at 130. Chest x-ray shows some mild cardiomegaly. CT scan of the head was unremarkable. CT angiography of the head neck revealed a 4 millimeter aneurysm at the junction of the right middle cerebral artery. No other vascular anomaly or stenosis was noted. MRI of the brain showed some mild generalized atrophy and very minimal old small vessel ischemic disease. There was no evidence for stroke. I reviewed these films. Today the patient has had no new symptoms or issues. CBC showed some very mild anemia and Chem profile was otherwise unremarkable. Triglycerides were 109 and total cholesterol 115. Hemoglobin A1c was 6.5. Additional history states the patient had a history of prostate cancer about 4 years ago post radiation and some injection hormone therapy. He is not on any treatment currently for prostate cancer , as he is in remission. Allergies Allergy/AdvReac Type Severity Reaction Status Date / Time No Known Allergies Allergy Unverified 08/08/21 20:31 Home Medications Medication Instructions Recorded Confirmed Type aspirin 81 mg tablet,delayed 81 mg PO DAILY 08/08/21 08/08/21 History release carvedilol 6.25 mg tablet 6.25 mg PO BID 08/08/21 08/08/21 History clopidogrel 75 mg tablet 75 mg PO DAILY 08/08/21 08/08/21 History hydrochlorothiazide 12.5 mg tablet 12.5 mg PO DAILY 08/08/21 08/08/21 History lisinopril 10 mg tablet 10 mg PO DAILY 08/08/21 08/08/21 History nitroglycerin 0.4 mg sublingual 0.4 mg SUBLINGUAL .PRN/UD PRN 08/08/21 08/08/21 History tablet (Nitrostat) omega-3 fatty acids 1,000 mg PO DAILY 08/08/21 08/08/21 History rosuvastatin 40 mg tablet (Crestor) 40 mg PO DAILY 08/08/21 08/08/21 History tamsulosin 0.4 mg capsule 0.4 mg PO DAILY 08/08/21 08/08/21 History Patient History Medical History (Updated 08/09/21 @ 09:49 by Spencer Samuels MD) BPH w urinary obs/LUTS HLD (hyperlipidemia) HTN (hypertension) No pertinent family history TIA (transient ischemic attack) Tobacco use disorder Surgical History H/O umbilical hernia repair History of tonsillectomy No pertinent past surgical history Family History Mother , age 90 of congestive heart failure. CHF (congestive heart failure) Father , age 94 of heart disease Heart disease Social History Smoking Status: Current every day smoker packs per day: 1; Years Smoked: 55; Hx Alcohol Use: No Hx Substance Use: No Preferred Language: [place]an Communication Ability: Effective Receiving Associate Required: No Beliefs That Will Affect Care: None Current Living Situation: Spouse current occupational status: retired current occupation: retired from the [employer] Other Information That Helps Us Care for You: No Feels Safe at Home: Yes Safety Concerns: Feels Safe At This Time Assistive Devices: None Review of Systems Constitutional: no fever, no fatigue and no weakness Eyes: no diplopia, no eye pain and no worsening vision Ear, Nose, Mouth, Throat: no ear pain, no tinnitus, no hearing loss, no diz ziness, no snoring, no hoarseness and no dysphagia Respiratory: no cough and no dyspnea Cardiovascular: no chest pain, no palpitations and no lightheadedness Gastrointestinal: no abdominal pain, no nausea and no vomiting Musculoskeletal: no back pain, no neck pain, no radicular pain, no joint pain and no myalgia Integumentary: no rash and no lesions Neurologic: no gait abnormality, no localized weakness, no generalized weakness, no tingling, no numbness, no tremor(s), no abnormal movements, no headache(s), no abnormal speech, no confusion and no memory loss Psychiatric: no depression, no irritability, no anxiety, no difficulty concentrating, no confusion and no hallucinations Endocrine: no fatigue and no flushing Hematologic / Lymphatic: no easy bleeding and no easy bruising Allergy / Immunological: no urticaria and no problem reported Exam (Neuro) Physical Exam: The patient is right-handed. The patient is awake, alert, and attentive. Speech is normal without any aphasia or dysarthria. The patient can name objects, repeat phrases, and has normal spontaneous speech. Mentation and thought processes are intact, with orientation to person, place and time, and normal fund of knowledge. Attention and concentration are normal. Mood and affect are normal and appropriate. General appearance and grooming are normal. Short and long-term memory are intact. Pupils are 4 mm bilaterally and reactive to light. Extraocular eye muscles are intact without nystagmus. Visual acuity and visual kurtz seem normal grossly to confrontation. There are no deficits to sensation in the face in all 3 distributions of the fifth cranial nerve bilaterally. Corneal reflexes are positive bilaterally. Facial strength is normal bilaterally, however, there is an asymmetry with the right corner of the mouth being lower than the left. According to the this is old. He moves both sides very well with smile. Hearing seems normal bilaterally. Palate moves well without asymmetry. There is normal sternocleidomastoid and trapezius (shoulder shrug) strength bilaterally. Tongue is midline with good strength bilaterally. Neck has a full range of motion without discomfort. There are no cervical bruits bilaterally. There are no cranial or ocular bruits. Heart is without murmur. There is a regular rhythm and rate. Cervical, thoracic, and lumbar spine are nontender to palpation. Gait is narrow based, with good arm swing, turns, and stance. Balance is normal eyes open or closed. With outstretched arms there is no drift. There are no resting, postural, or action tremors. There is no ataxia with finger to nose testing. There is good facility in the hands. No other abnormal involuntary movements are noted. Motor strength is 5/5 diffusely in the arms bilaterally including deltoids, biceps, triceps, brachioradialis, wrist flexors and extensors, precision thread grinder operator, and intrinsic hand muscles. Motor strength is 5/5 diffusely in the legs bilaterally including hip flexors, quadriceps, hamstrings, gastrocnemius, tibialis anterior, tibialis posterior, and Peroneii muscles. Toe extensors are normal and there is good bulk in the extensor digitorum brevis muscles bilaterally. The limbs have good tone without rigidity or spasticity. There is no atrophy noted in the muscles. Muscle bulk is normal, there is no tenderness to palpation, no myotonia to percussion, and no fasciculations seen. Sensory examination is intact to touch and pin throughout all 4 limbs diffusely. Reflexes are 3/4 in the biceps, triceps, brachioradialis, quadriceps, and Achilles tendons bilaterally. There is no clonus bilaterally. Toes are downgoing with plantar stimulation bilaterally. Peripheral pulses are present and of normal quality distally in all 4 limbs. There is no peripheral edema noted in the limbs. Results & Data ([facility]) Vital Signs (Past 12 Hours) Vital Signs Temp Pulse Pulse Resp BP BP Pulse Ox 08/09/21 04:24 82 08/09/21 03:00 36.7 C 77 16 103/64 94 08/09/21 00:25 95 H 16 134/77 96 PG Care Time/CCT Total # of Minutes Spent Total Time Spent with Patient: Total time spent is greater than 50% in coordination of care (as documented) at patient's floor/unit and/or counseling patient: Coding Level of Care Code 29580 Initial Inpt Care Lvl 3 Diagnoses Brain TIA G45.9 Slurred speech R47.81 Cerebral aneurysm, nonruptured I67.1 Time Spent (min) 120
[2021-08-09] MEDS ORDERED: STROKE PATIENT DISCHARGE STA (11:55)
--- NOTE | 2021-08-09 12:23 | Discharge Summary ---
Date of Service August 09, 2021 Admission HPI Per Admitting Provider The patient is a 75-year-old male with a past medical history including hyperlipidemia, BPH with LUTS, hypertension, and a TIA about 4 years ago, with symptoms that completely resolved, and presents with similar but more severe symptoms this evening. The patient continues to smoke 1 pack/day, and as noted without side having a smoke, when upon coming inside, his noted that he had a slurred speech, that did completely resolved. He has been taking all his medications as directed. He had no other symptoms such as weakness in extremities or loss of sensation, difficulty swallowing. Principal Diagnosis 1. Transient ischemic attack 2. Slurred speech/dysphagiasecondary to #1 and resolved 3. Chronic tobacco abuse Discharge Exam General: Resting comfortably in his hospital bed. NAD. HEENT: Head is AT/NC. Buccal mucosa is moist and pink Neck: No JVD. Negative hepatojugular reflex Cardiac: RRR without M/G/R Lungs: CTA without W/R/R Abdomen: Normoactive X4. Soft and nontender in all quadrants. Extremities: No peripheral clubbing cyanosis or edema Neuro: A&O X4. Cranial nerves II through XII are grossly intact. No focal neuro deficits. Mild asymmetry of the right side of the face (question mild droop). reports this is not a new finding. Otherwise uvula midline. Tongue midline without deviation. Speech is clear. Negative pronator drift. Negative Romberg. Ambulates without ataxia. Downward Babinski. Ip Litigation Associate strength intact and symmetrical bilaterally. Shoulder shrug intact and symmetrical bilaterally. Skin: No obvious skin lesions or rashes Psych: Appropriate affect. Pleasant and cooperative Discharge Data Allergies Allergy/AdvReac Type Severity Reaction Status Date / Time No Known Allergies Allergy Unverified 08/08/21 20:31 Consultations 08/08/21 22:07 ED Decision to Admit Stat 08/09/21 00:50 Consult Neurology Routine Ordered Studies 08/08/21 19:17 CT angio head w con Stat CT angio neck with con Stat CT head/brain wo con Stat IMPRESSION: 1. No significant stenosis or occlusion within the [place]. 2. No significant stenosis, occlusion, or dissection identified within the carotid or vertebral arteries. 3. 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 4. A 1 cm polyp within the posterior hypopharynx at the level of the epiglottis. Direct visualization recommended for further evaluation. 08/08/21 22:55 MR brain wo con Stat IMPRESSION: No acute intracranial abnormality. Impression: No acute intracranial abnormality. 08/09/21 00:50 MR angio head wo con Urgent IMPRESSION: 1. No central vessel occlusion. 2. The 4 mm right MCA bifurcation aneurysm shown on CTA of August 08, 2021 is not well visualized on this exam, possibly due to motion artifact. Hospital Course (1) Slurred speech: 75-year-old white male with an underlying past medical history of CAD s/p old LA, HTN, HLD, chronic tobacco abuse, and prior TIA in the past presented with slurred speech. Had a brief episode lasting a few minutes prior to arrival. Had a subsequent episode while in the emergency department that lasted several episodes. Both were self-limiting. Patient's work-up was essentially within normal limits. Had CT of the head and CTA of the head along with MRI/MRA of the brain and neck. He does have a coincidental 4 mm aneurysm at the MCA bifurcation in addition to a 1 cm coincidental polyp seen at the epiglottis. Patient subsequently hospitalized for further evaluation and care. He has been completely asymptomatic since hospitalization Has been on dual antiplatelet therapy in the past but reports aspirin stopped in the past. He is currently only taking Plavix. He has been continued on his high intensity statin therapy, his antihypertensive agents as prior to hospitalization. His blood pressures controlled at 107/66. Was slightly elevated upon presentation into the ED at 146/84 but has since been stable/controlled. His lipid panel was obtained and is controlled with a total cholesterol 115, HDL 37, LDL of 56 and a triglyceride level of 109. An A1c was assessed for further risk stratification and acceptable at 6.5 An EKG showed poor R wave progression but no arrhythmia or acute ST/T wave changes. Troponin cycled and remained negative. An echocardiogram obtained. Has since been done but final report pending At this point time, he is remained hemodynamically stable and asymptomatic. He has been seen by neurology who recommends dual antiplatelet therapy at least for 3 weeks in the form of Plavix and aspirin. Patient sustained this TIA while on Plavix thus may need long-term dual antiplatelet therapy but for now, neurology is recommending both of these agents X 3 weeks. In addition, neurology and myself both strongly encourage smoking cessation. Lengthy discussion with patient regarding the importance of this and this being the biggest risk factor to having subsequent events. He voices understanding. Patient does not actively follow a PCP. [facility] but [facility] he [facility]. [facility] [place] as he worked in [place] but has since retired and is nearly out of his medications. I did refill all of his medications and stressed the importance of compliance which he understands. At this point time, he is medically hemodynamically stable for discharge to home. Will need to follow-up with the PCP (which the nurse navigator is helping to arrange). He will need someone to follow-up regarding the echocardiogram report (which is currently not available to me) (2) Brain TIA: History of previous brain TIA approximately 4 years ago, with symptoms had completely resolved (3) BPH w urinary obs/LUTS: Continue tamsulosin 0.4 mg in the evening (4) Tobacco use disorder: Smokes 1 pack/day Cessation counseling (5) HLD (hyperlipidemia): Continue rosuvastatin 40 mg daily (6) HTN (hypertension): Continue carvedilol 6.25 mg p.o. twice daily, HCTZ and lisinopril Discharged home today. Plan of care discussed with Dr. Samuels (Neuro) and Dr. Lindsay (attending) who also examined the patient and agrees with discharge plan Total Time Total Time Spent Total Time Spent (In Minutes): 30 Discharge Plan Discharge Items Patient Disposition: Home - Self-Care Reason For Visit: TIA Discharge Diagnosis: 1. TIA (transient ischemic attack)"mini stroke" Activity: Resume your previous activity Non-emergency contact: Primary Care Provider and Neurologist Call non-emergency contact if: you have any medication questions and your symptoms worsen Follow-up/Referrals: Spencer Samuels MD [Physician] - PCP,NO [Primary Care Provider] - Diet: Heart Healthy Addtl Attending Provider Instructions: You were hospitalized given slurred speech and were found to have a transient ischemic attack (also known as a mini stroke) You had extensive imaging of your brain and brain vessels. You did not have a stroke. Given the nature of your symptoms, it is highly suspected that you did; however, have a mini stroke. This increases your risk of subsequent events or worsening events such as a stroke that may leave you with complications. To help reduce this risk, it is imperative that you STOP SMOKING! We discussed multiple options to help you succeed in this, you have declined any medications. As discussed, strongly encourage something to help satisfy the hand/oral fixation as discussed. In addition to smoking cessation, aspirin is being added to your medication regimen. Continue on Plavix. Neurology has recommended you take both of these medications for 3 weeks and then stop the aspirin. You may need to be kept on both of these medications long-term should you not succeed with smoking cessation; however, there is no degree of added medication that will help reduce the risk of subsequent events as would smoking cessation. --Additional Medication: Aspirin (Enteric Coated) 81mg daily Being on both Plavix and aspirin does increase her risk of bleeding. Given this increased risk, I have added Protonix to help protect her GI system. If you notice blood in your stool, or black tarry stoolit is imperative that you notify your PCP. In addition, you were found to have a very small (4 mm) aneurysm within one of the vessels within your brain. This is likely coincidental finding and is not causing the symptoms that you presented with. No intervention needs to be taken at this time; however, this should be monitored. In discussion with neurology, you will have follow-up imaging of your brain to follow this. Follow-up with PCP as scheduled. You did not have a family doctor so we did help arrange this appointment. Follow-up with neurology within 2 to 4 weeks Return to the ED for any new or worsening symptoms Last, you were also's found to have what appeared to be a polyp on your epiglottis. This is the "flap" that covers your trachea when you swallow. Given your history of tobacco abuse, you need to see ENT. You may need to have direct visualization and biopsy of this to ensure that it is not cancer. Pending Studies at Discharge: Yes Studies:: echocardiogram Stand-Alone Forms: My [facility] [employer], Smoking Cessation Medications and DC Order Prescriptions: New Fish Oil 340-1,000 mg Capsule 1 g PO DAILY Qty: 30 RF: 0 pantoprazole [Protonix] 40 mg tablet,delayed release (DR/EC) 40 mg PO DAILY Qty: 30 RF: 0 Continued aspirin 81 mg Tablet,Delayed Release (Dr/Ec) 81 mg PO DAILY RF: 0 omega-3 fatty acids Capsule 1,000 mg PO DAILY RF: 0 carvedilol 6.25 mg Tablet 6.25 mg PO BID Qty: 60 RF: 0 clopidogrel 75 mg tablet 75 mg PO DAILY Qty: 30 RF: 0 hydrochlorothiazide 12.5 mg Tablet 12.5 mg PO DAILY Qty: 30 RF: 0 tamsulosin 0.4 mg Capsule 0.4 mg PO DAILY Qty: 30 RF: 0 lisinopril 10 mg tablet 10 mg PO DAILY Qty: 30 RF: 0 nitroglycerin [Nitrostat] 0.4 mg tablet, sublingual 0.4 mg sublingual .PRN/UD PRN (Reason: Chest Pain) Qty: 20 RF: 0 rosuvastatin [Crestor] 40 mg tablet 40 mg PO DAILY Qty: 30 RF: 0 Discharge Orders: Discharge Order (Routine); Ordered 08/09/21 Ordered By: Bindu Fabian/Other Patient Handouts: A1C, 5 Steps for Eating Healthier, Exercise: Why Fitness Matters, TIA Dc, ED How to Quit Smoking Admission Data Admit Date/Time: 08/08/21 22:55 Attending Provider: Epi Lindsay Admit Provider: Alonzo Lopez Primary Care Provider: PCP,NO Other Providers: Alonzo Lopez ; Darwin Moore. Other Interventions: Discharge Summary Assessment (RN) Last Done: 08/09/21 12:00 Coding Level of Care Code 91520 OBS Care - Discharge Diagnoses Slurred speech R47.81 Brain TIA G45.9 BPH w urinary obs/LUTS N40.1; N13.8 Tobacco use disorder F17.200 HLD (hyperlipidemia) E78.5 HTN (hypertension) I10
--- NOTE | 2021-08-09 18:23 | XCELERA ---
[id number]
--- NOTE | 2021-08-09 21:37 | Electrocardiogram Report ---
Test Reason : Blood Pressure : / mmHG Vent. Rate : 098 BPM Atrial Rate : 098 BPM P-R Int : 148 ms QRS Dur : 092 ms QT Int : 344 ms P-R-T Axes : 066 004 107 degrees QTc Int : 439 ms Sinus rhythm with occasional Premature ventricular complexes Possible Left atrial enlargement Low voltage QRS Nonspecific T wave abnormality Cannot rule out Anteroseptal infarct (cited on or before 03-FEB-2005) Abnormal ECG When compared with ECG of 03-FEB-2005 13:03, ST elevation is no longer present Premature ventricular complexes are now Present Confirmed by Guilherme Gan ([id number]) on 08/09/2021 9:36:59 PM Referred By: REFERRED SELF Confirmed By:Guilherme Gan
--- NOTE | 2021-08-09 21:50 | Electrocardiogram Report ---
Test Reason : Blood Pressure : / mmHG Vent. Rate : 086 BPM Atrial Rate : 086 BPM P-R Int : 152 ms QRS Dur : 092 ms QT Int : 370 ms P-R-T Axes : 071 018 102 degrees QTc Int : 442 ms Sinus rhythm with occasional Premature ventricular complexes Possible Left atrial enlargement Low voltage QRS Cannot rule out Anteroseptal infarct (cited on or before 03-FEB-2005) Nonspecific T wave abnormality Abnormal ECG When compared with ECG of 08-AUG-2021 19:20, No significant change was found Confirmed by Guilherme Gan ([id number]) on 08/09/2021 9:49:55 PM Referred By: REFERRED SELF Confirmed By:Guilherme Gan
--- NOTE | 2021-08-10 12:26 | Communication Note ---
Date of Service: August 10, 2021 Was notified by cardiology today regarding echocardiogram read. EF diminished at 30 to 35%. Called the patient to notify him of this. He reports that he was told he had a "diminished heart function" in the past. He was able to look through his old records and found an echocardiogram from 2010 denoting an EF of 40% and going over his specific medications and need for beta-blockade and ROGERS inhibitor, he reports that he looked on the patient portal and realized that when he gave his medication list to the admitting nurse, he also gave his 's medication list. I provided refills on all of his home medications but he did not realize that half of these were incorrect until getting home. I went through each medication with him and his . CORRECT MED LIST: 1. Toprol-XL 100 mg daily 2. Lisinopril 10 mg daily 3. Zetia 10 mg daily 4. Janumet milligrams twice daily 5. Plavix 75 mg daily 6. Crestor 40 mg daily 7. Nitroglycerin sublingually as needed 8. Flomax 0.4 mg daily 9. ProAir inhaler as needed I called the pharmacy to ensure that this was corrected New medications: 1. Aspirin 81 mg daily 2. Pantoprazole 40 mg daily Lengthy discussion with cardiology regarding diminished EF. This is not new thus cardiology does not feel strongly that patient needs a LifeVest at this time. They do; however, believe that he needs a nonemergent updated cardiac catheterization. They will see him in the office next week to arrange. Lengthy discussion with patient regarding risk of fatal cardiac arrhythmia and potential need for ICD placement.
== END 2021-08-09 12:45 | disposition home or self-care (01) ==
LOC: ED 18:57 → 2S 18:57 → SUATTDRO 22:55 → 2S 08-09 00:25

== ENCOUNTER 2024-01-26 05:56 | Observation (INO) ==
[2024-01-26 06:52] LABS: Basophils # (auto) 0.03 K/uL (0.00-0.20); Basophils % (auto) 0.4 %; Eosinophils # (auto) 0.11 K/uL (0.00-0.50); Eosinophils % (auto) 1.4 %; Hematocrit (blood only) 36.5 % (42.0-52.0); Hemoglobin 12.2 g/dl (14.0-18.0); Immature Granulocytes # (auto) 0.03 K/uL (0.01-0.20); Immature Granulocytes % (auto) 0.4 %; Lymphocytes # (auto) 1.04 K/uL (1.20-3.40); Mean Corpuscular Hemoglobin 28.8 pg (25.0-34.0); Mean Corpuscular Hgb Conc 33.4 g/dL (32.0-36.0); Mean Corpuscular Volume 86.3 fL (80.0-100.0); Mean Platelet Volume 9.8 fL (9.4-12.4); Monocytes # (auto) 0.61 K/uL (0.11-0.59); Monocytes % (auto) 7.6 %; Neutrophils % (auto) 77.2 %; Platelet Count 182 K/uL (130-400); RDW Coefficient of Variation 13.4 % (11.5-14.5); Red Blood Count 4.23 M/uL (4.70-6.10); White Blood Count 8.02 K/ul (4.8-10.8)
--- NOTE | 2024-01-26 07:00 | XRay Report ---
XR chest 1V portable CLINICAL HISTORY: Chest pain, nonspecific COMPARISON STUDY: Chest radiograph 2. PET/CT 22,024. FINDINGS: The right unchanged. Bibasilar and left midlung densities are noted.. There is no pneumotho rax or pleural effusion. Cardiac size is stable. Mediastinal contours are normal. There is no evidenc e for pulmonary edema. IMPRESSION: 1. No acute cardiopulmonary findings. 2. Bibasilar left midlung densities which favor atelectasis or scarring. ACT 112: Negative or not required by law. Electronically signed by: Tamir Vanegas M.D. 01/26/2024 6:57 AM
[2024-01-26 07:06] LABS: Alanine Aminotransferase 8 U/L (7-52); Albumin Globulin Ratio 1.5 (0.9-2); Albumin Level 3.8 gm/dl (3.4-5.0); Alkaline Phosphatase 45 U/L (34-104); Anion Gap 9 (3-11); Aspartate Aminotransferase 14 U/L (13-39); BUN Creatinine Ratio 23.8 (10-20); Bilirubin,Total 0.6 mg/dl (0.2-1.0); Blood Urea Nitrogen 15 mg/dl (6-23); Calcium 8.6 mg/dl (8.6-10.3); Carbon Dioxide 23 mmol/L (21-32); Chloride 106 mmol/L (98-107); Est GFR (African American) 110.9 ml/min; Est GFR (Non-African American) 95.7 ml/min; Globulin 2.6 gm/dl (2.5-4.0); Glucose 155 mg/dl (70-99(Fasting)); Lipase 26 U/L (11-82); Magnesium 1.5 mg/dl (1.7-2.4); Potassium 3.7 mmol/L (3.5-5.1); Sodium 138 mmol/L (136-145); Total Protein 6.4 gm/dl (6.0-8.3)
[2024-01-26 07:18] LABS: Troponin I High Sensitivity 556.9 pg/ml (0-20)
--- NOTE | 2024-01-26 07:20 | Emergency Department Note ---
History of Present Illness General Chief complaint: Respiratory Problems Stated complaint: COUGH,LOTS OF FLUID,EARS CLOGGING,DULL CHEST ACHE Time Seen by Provider: 01/26/24 07:03 Source: patient, family ( was at the bedside), RN notes reviewed and old records reviewed (12/05/23-primary care office visit for tick bite) Mode of arrival: ambulatory Limitations: no limitations History of Present Illness Maximum Pain Intensity: 7 This patient is a 78-year-old male who comes in after having a cough for a week or so. He is also had aching in his chest which has been constant for 2 days. He says not as much. It is not as bad right now but hurts more at night nothing particular makes it better or worse. He has been coughing up clear phlegm and then rattle he is says he been to doctors office twice recently he does have a history of prostate cancer with recurrence and takes xdandi. He is also on lisinopril among other medications and takes Plavix. He was recently treated for Lyme disease. He has had no fever . no pleuritic chest pain. no fall or trauma ,no lower extremity pain or swelling,o blood or melena in his stool. He does have a history of smoking but is on no inhalers and has no history of COPD Home Medications Medication Instructions Recorded Confirmed Type cholecalciferol (vitamin D3) 50 50 mcg PO DAILY 12/25/21 01/26/24 History mcg (2,000 unit) capsule whwvefce-tog-jxgpr acid 0.4 1 tab PO DAILY 12/25/21 01/26/24 History mg-lycopene 300 mcg-lutein 250 mcg tablet (Centrum Silver) nitroglycerin 0.4 mg sublingual 0.4 mg sublingual .PRN/UD PRN 03/28/22 01/26/24 Rx tablet (Nitrostat) Chest Pain #20 tabs sildenafil 25 mg tablet (Viagra) 50 mg (2 x 25 mg) PO DAILY PRN 03/28/22 01/26/24 Rx erectile dysfunction #30 tabs quercetin 500 mg capsule 500 mg PO .QOD #30 caps 11/06/22 01/26/24 Rx clopidogrel 75 mg tablet See Rx Instructions .Route 01/07/23 01/26/24 Rx .COMPLEX #90 tabs rosuvastatin 40 mg tablet See Rx Instructions .Route 01/29/23 01/26/24 Rx .COMPLEX #90 tabs zinc 50 mg tablet 50 mg PO .QOD 04/10/23 01/26/24 History metoprolol succinate 200 mg 200 mg PO QAM #90 tabs 04/23/23 01/26/24 Rx tablet,extended release 24 hr calcium caltrate 1,200 mg PO DAILY 06/03/23 01/26/24 History diclofenac sodium 1 % topical gel 2 g topical QID PRN pain, moderate 06/14/23 01/26/24 Rx #100 grams tamsulosin 0.4 mg capsule 0.4 mg PO QPM #90 caps 06/17/23 01/26/24 Rx sitagliptin phosphate 50 1 tab PO BID #180 tabs 10/22/23 01/26/24 Rx mg-metformin 1,000 mg tablet (Janumet) lisinopril 20 mg tablet 20 mg PO DAILY #90 tabs 11/29/23 01/26/24 Rx triamcinolone acetonide 0.1 % 1 applic topical BID #15 grams 12/05/23 01/26/24 Rx topical cream enzalutamide 40 mg capsule (Xtandi) 80 mg PO DAILY 12/12/23 01/26/24 History pantoprazole 40 mg tablet,delayed 40 mg PO .3xWEEKLY #90 tabs 12/25/23 01/26/24 Rx release (Protonix) Allergies Allergy/AdvReac Type Severity Reaction Status Date / Time No Known Drug Allergies Allergy Unknown Verified 12/05/23 14:04 Past Med/Surg History Problem List (Updated 01/26/24 @ 08:38 by Darwin Kent MD) Elevated troponin I level (Acute) PVC (premature ventricular contraction) (Acute) Cough (Acute) Chest pain (Acute) Prostate cancer metastatic to bone (Chronic) Mitral regurgitation HTN (hypertension) HLD (hyperlipidemia) BPH w urinary obs/LUTS Tobacco use disorder Slurred speech Cerebral aneurysm, nonruptured Epiglottic lesion Ischemic cardiomyopathy CAD (coronary artery disease) F/U DR BENTON BRADY S/P coronary artery stent placement 2004- STENT [facility] Parotid mass Supraglottic lesion Type 2 diabetes mellitus Encounter for pre-operative examination History of colon polyps Prostate cancer 05/15/17 Diagnosis Erectile dysfunction Lower urinary tract symptoms Osteopenia due to cancer therapy Medical History Cerebral aneurysm DX'D 07/2021-UNDER OBSERVATION GERD (gastroesophageal reflux disease) Prostate cancer TREATED WITH RADIATION No pertinent family history TIA (transient ischemic attack) 07/2017 AND 07/2021-PLACED ON PLAVIX SINCE 2017-F/U DR WATSON SLURRED SPEECH, RESOLVED Surgical History History of vasectomy 1978 History of tonsillectomy 1952 H/O umbilical hernia repair 1999 Family History Mother , age 90 of congestive heart failure. CHF (congestive heart failure) Heart disease Hx of CABG Father , age 94 of heart disease Heart disease H/O heart artery stent Brother Heart disease Age 41yo Sister Ovarian cancer Sister Diabetes Son Sleep apnea Daughter No problems noted. Other No family history of adverse response to anesthesia No family history of bleeding disorder Denies family history of Hypertension Stroke Social History Smoking Status: Former smoker Tobacco Type: Cigarettes Age Quit Using Tobacco: 76; packs per day: 1; Second Hand Exposure: No; Do You Dip or Chew Tobacco: No; Hx Alcohol Use: No Hx Substance Use: No Preferred Language: Thai Communication Ability: Effective Visual Impairment: No Limitations Hearing Ability: Normal Director Private Required: No Beliefs That Will Affect Care: None marital status: Current Living Situation: Spouse current occupational status: retired current occupation: retired from the [employer] How many Children do You have: 2 Feels Safe at Home: Yes Safety Concerns: Feels Safe At This Time Childhood Exposure to Second-Hand Smoke: No Diet: regular caffeine: Yes during the past year weight has: decreased > 10 lbs Dental Care, Regularly: Yes Physical Activity Frequency: Daily Seatbelt Use: always Sunscreen Use: No Assistive Devices: None Review of Systems A total of 10 systems reviewed and were otherwise negative Physical Exam Vital Signs Vital Signs - 24 hr 01/26/24 06:02 01/26/24 06:16 01/26/24 06:17 Temperature 36.6 C Temperature Source Temporal Artery Scan Pulse Rate 101 H 100 H Pulse Rate [Apical] 89 Pulse Rate from SpO2 Sensor Respiratory Rate 18 16 Respiratory Effort / Characteristics Non-Labored Spontaneous Respiratory Depth Normal Respiratory Pattern Regular Blood Pressure 137/87 Blood Pressure [Right Arm] 134/87 Blood Pressure Mean 103 Blood Pressure Mean [Right Arm] 102 Pulse Oximetry 91 93 Oxygen Delivery Method Room Air Room Air Sepsis Recent Fever Within 48 Hours No Sepsis New/Unexplained Change in Mental Status N/A Sepsis Action Taken by Nursing No Action Required 01/26/24 06:21 01/26/24 06:33 01/26/24 06:44 Temperature Temperature Source Pulse Rate 89 86 Pulse Rate [Apical] Pulse Rate from SpO2 Sensor 98 H 54 L Respiratory Rate 20 22 Respiratory Effort / Characteristics Respiratory Depth Respiratory Pattern Blood Pressure Blood Pressure [Right Arm] Blood Pressure Mean Blood Pressure Mean [Right Arm] Pulse Oximetry 92 92 93 Oxygen Delivery Method Room Air Sepsis Recent Fever Within 48 Hours Sepsis New/Unexplained Change in Mental Status Sepsis Action Taken by Nursing 01/26/24 06:48 01/26/24 06:57 01/26/24 07:00 Temperature Temperature Source Pulse Rate 87 Pulse Rate [Apical] 89 Pulse Rate from SpO2 Sensor 88 Respiratory Rate 16 20 Respiratory Effort / Characteristics Respiratory Depth Respiratory Pattern Blood Pressure 134/93 Blood Pressure [Right Arm] 134/105 H Blood Pressure Mean 107 Blood Pressure Mean [Right Arm] 114 Pulse Oximetry 93 93 Oxygen Delivery Method Room Air Sepsis Recent Fever Within 48 Hours Sepsis New/Unexplained Change in Mental Status Sepsis Action Taken by Nursing 01/26/24 07:03 01/26/24 07:39 Temperature Temperature Source Pulse Rate 98 H 88 Pulse Rate [Apical] Pulse Rate from SpO2 Sensor 99 H 88 Respiratory Rate 23 23 Respiratory Effort / Characteristics Respiratory Depth Respiratory Pattern Blood Pressure Blood Pressure [Right Arm] Blood Pressure Mean Blood Pressure Mean [Right Arm] Pulse Oximetry 95 93 Oxygen Delivery Method Sepsis Recent Fever Within 48 Hours Sepsis New/Unexplained Change in Mental Status Sepsis Action Taken by Nursing General: Well developed well nourished older male who has a deep intermittent hacking cough but otherwise in no acute distress, breathing comfortably on room air. Normal speech HEENT: Normal cephalic atraumatic. Pupils are equal round and reactive to light. Extraocular movements are intact. Oropharynx is pink with moist mucous membranes. No swelling of the mouth lips or tongue. Neck: Supple with a midline trachea. No meningeal signs or stiffness, no JVD or bruits. No Stridor. Chest: Clear to auscultation bilaterally. No wheezes or rhonchi. No increased work of breathing. Not reproducibly tender Heart: Regular rate and rhythm without murmurs or gallops. Abdomen: Soft nontender, nondistended without rebound guarding or rigidity. Extremities: No cyanosis clubbing or edema. No calf tenderness or assymetry Spine/Back. Non tender to palpation. No CVA tenderness Skin: Good turgor without rashes. Neurologic exam: Cranial nerves two through 12 are intact. Motor and sensation are intact and symmetrical throughout. Course Administered Medications Calcium/Vitamin D (Calcium 600mg + Vit D 400 Iu Tab) 2 tab PO DAILY SHASHI Stop: 02/25/24 09:52 Last Admin: 01/26/24 12:19 Dose: 2 tab Documented By: TNK Enoxaparin Sodium (Enoxaparin Inj 40 Mg/0.4 Ml Syr) 40 mg SQ Q24H SHASHI Stop: 02/25/24 10:59 Last Admin: 01/26/24 12:19 Dose: Not Given Documented By: TNK Fluticasone Propionate (Fluticasone Propionate Na Spr 16 Gm Btl) 2 sprays HILARIO BID SHASHI Stop: 02/25/24 09:52 Last Admin: 01/26/24 12:19 Dose: 2 sprays Documented By: TNK Lisinopril (Lisinopril 20 Mg Tab) 20 mg PO DAILY SHASHI Stop: 02/25/24 09:52 Last Admin: 01/26/24 12:19 Dose: 20 mg Documented By: DIDIERK Miscellaneous (Enzalutamide [Xtandi] 40 Mg - Order Awaiting Action) 1 each N/A QS SHASHI Stop: 02/25/24 10:14 Last Admin: 01/26/24 14:23 Dose: Not Given Documented By: TMP Multivitamins/Minerals (Cerovite Adv Formula Tab) 1 tab PO DAILY SHASHI Stop: 02/25/24 09:52 Last Admin: 01/26/24 12:18 Dose: 1 tab Documented By: TNK Vitamin D (Cholecalciferol 25 Mcg (1000 Units) Tab) 50 mcg PO DAILY SHASHI Stop: 02/25/24 09:52 Last Admin: 01/26/24 12:19 Dose: 50 mcg Documented By: TNK Zinc Sulfate (Zinc Sulfate 220 Mg Capsule) 50 mg PO Q2D@0900 SHASHI Stop: 02/25/24 10:14 Last Admin: 01/26/24 14:23 Dose: Not Given Documented By: TMP Discontinued Medications Clopidogrel Bisulfate (Clopidogrel Bisulfate 75 Mg Tab) 75 mg PO DAILY SHASHI Stop: 02/25/24 09:52 Last Admin: 01/26/24 14:23 Dose: Not Given Documented By: TMP Magnesium Sulfate/Dextrose (Magnesium Sulfate / D5w) 1 gm in 100 mls @ 100 mls/hr IV NOW STA Stop: 01/26/24 08:34 Last Infusion: 01/26/24 09:31 Dose: Infused Documented By: Admin: 01/26/24 07:54 Dose: 100 mls/hr Documented By: DIDIERK Metoprolol Succinate (Metoprolol Succ 50mg Ext Rel Tab) 200 mg PO QAM SHASHI Stop: 02/25/24 09:52 Last Admin: 01/26/24 14:24 Dose: Not Given Documented By: TMP Rosuvastatin Calcium (Rosuvastatin Calcium 20 Mg Tab) 20 mg PO DAILY SHASHI Stop: 02/25/24 09:52 Last Admin: 01/26/24 14:24 Dose: Not Given Documented By: TMP Medical Decision Making Differential Diagnosis Pneumonia, URI, acute coronary syndrome, complication related to chronic medical problems, PE, arrhythmia, electrolyte or metabolic abnormality, viral illness, COVID, infection Medical Records Attestation: I reviewed the patient's medical records. Home Medications Current Medication List: was personally reviewed by me Laboratory Data Attestation: I reviewed the patient's lab results. 01/26/24 06:30 01/26/24 06:30 Lab Results 01/26/24 01/26/24 Range/Units 06:30 06:34 WBC 8.02 (4.8-10.8) K/ul RBC 4.23 L (4.70-6.10) M/uL Hgb 12.2 L (14.0-18.0) g/dl Hct 36.5 L (42.0-52.0) % MCV 86.3 (80.0-100.0) fL MCH 28.8 (25.0-34.0) pg MCHC 33.4 (32.0-36.0) g/dL RDW Std Deviation 42.0 (36.4-46.3) fL RDW Coeff of Marily 13.4 (11.5-14.5) % Plt Count 182 (130-400) K/uL MPV 9.8 (9.4-12.4) fL Immature Gran % (Auto) 0.4 % Neut % (Auto) 77.2 % Lymph % (Auto) 13.0 % [place] % (Auto) 7.6 % Eos % (Auto) 1.4 % Baso % (Auto) 0.4 % Neut # (Auto) 6.20 (1.40-6.50) K/uL Lymph # (Auto) 1.04 L (1.20-3.40) K/uL [place] # (Auto) 0.61 H (0.11-0.59) K/uL Eos # (Auto) 0.11 (0.00-0.50) K/uL Baso # (Auto) 0.03 (0.00-0.20) K/uL Immature Gran # (Auto) 0.03 (0.01-0.20) K/uL Sodium 138 (136-145) mmol/L Potassium 3.7 (3.5-5.1) mmol/L Chloride 106 (98-107) mmol/L Carbon Dioxide 23 (21-32) mmol/L Anion Gap 9 (3-11) BUN 15 (6-23) mg/dl Creatinine 0.63 (0.6-1.4) mg/dl Est Cr Clr Drug Dosing Not Reportable Est GFR ( Amer) 110.9 ml/min Est GFR (Non-Af Amer) 95.7 ml/min BUN/Creatinine Ratio 23.8 H (10-20) Glucose 155 H (70-99(Fasting)) mg/dl Calcium 8.6 (8.6-10.3) mg/dl Magnesium 1.5 L (1.7-2.4) mg/dl Total Bilirubin 0.6 (0.2-1.0) mg/dl AST 14 (13-39) U/L ALT 8 (7-52) U/L Alkaline Phosphatase 45 (34-104) U/L Troponin I High Sens 556.9 H* (0-20) pg/ml B-Natriuretic Peptide 1511 H (0-100) pg/ml Total Protein 6.4 (6.0-8.3) gm/dl Albumin 3.8 (3.4-5.0) gm/dl Globulin 2.6 (2.5-4.0) gm/dl Albumin/Globulin Ratio 1.5 (0.9-2) Lipase 26 (11-82) U/L TSH 1.826 (0.300-4.500) uIu/ml Adenovirus (PCR) Not Detected (NotDetected) B. pertussis DNA (PCR) Not Detected (NotDetected) B.parapertussis DNA PCR Not Detected (NotDetected) C. pneumoniae DNA (PCR) Not Detected (NotDetected) Coronavirus OC43 (PCR) Not Detected (NotDetected) Coronavirus HKU1 (PCR) Not Detected (NotDetected) Coronavirus 229E (PCR) Not Detected (NotDetected) SARS-CoV-2 (PCR) Not Detected (NotDetected) Coronavirus NL63 (PCR) Not Detected (NotDetected) Human Metapneumovir PCR Not Detected (NotDetected) Influenza Type A (PCR) Not Detected (NotDetected) Influenza Type B (PCR) Not Detected (NotDetected) M. pneumoniae (PCR) Not Detected (NotDetected) Parainfluenza 1 (PCR) Not Detected (NotDetected) Parainfluenza 2 (PCR) Not Detected (NotDetected) Parainfluenza 3 (PCR) Not Detected (NotDetected) Parainfluenza 4 (PCR) Not Detected (NotDetected) RSV (PCR) Not Detected (NotDetected) Entero/Rhino (PCR) Not Detected (NotDetected) Imaging Data Attestation: I personally reviewed and interpreted this imaging study as follows: My Impression: Chest x-raychronic scarring no CHF. No pneumothorax. Radiologist's Impression: Chest X-Ray 01/26/24 06:10 XR chest 1V portable CLINICAL HISTORY: Chest pain, nonspecific COMPARISON STUDY: Chest radiograph 2. PET/CT 22,024. FINDINGS: The right unchanged. Bibasilar and left midlung densities are noted.. There is no pneumothorax or pleural effusion. Cardiac size is stable. Mediastinal contours are normal. There is no evidence for pulmonary edema. IMPRESSION: 1. No acute cardiopulmonary findings. 2. Bibasilar left midlung densities which favor atelectasis or scarring. ACT 112: Negative or not required by law. Electronically signed by: Tamir Vanegas M.D. 01/26/2024 6:57 AM ECG Data Attestation: I personally reviewed and interpreted this ECG as follows: Indication: + chest pain Rate (beats per minute): 99 Rhythm: + normal sinus ECG Intervals/blocks: + Normal QRS, + Normal QT and + Normal IN ECG [place]: + Normal ECG ST segments: + Normal ST segments ECG Findings: no PACs or no PVCs Comparison ECG Date: from (09/18/23) Change: no significant change MDM Narrative This patient comes in described above he had a chronic cough he is also chest pain has been constant for 2 days or so. He looks well on exam. He was placed on a classroom monitor in room C5. IV access was established. multiple blood testing was obtained. EKG does not show any definite change compared to old. His troponin did come back significantly elevated 556. I went back and checked on the patient , he says he is having no chest pain at present. EKG does not show any changes compared to old. Chest x-ray was unremarkable for any acute findings BNP is elevated. He does take Plavix so I did not give him aspirin. He is resting comfortably at present, I do think he needs to be admitted/observed. I have consulted with the [facility] hospitalist to see him the ER for these measures. With his troponin elevated certainly a non-STEMI would be the most likely diagnosis however with him having recently Lyme is possible he could have Lyme carditis or other etiologies. He has no evidence of arrhythmia or heart block so far. Continues classroom monitor call orders placed in the EMR for continuous classroom monitor: Pulm evaluation patient is to be in normal sinus rhythm with a rate of 99 with frequent PVCs. Impression & Plan Chest pain, Elevated troponin I level, Cough, PVC (premature ventricular contraction), Hx of Lyme disease Discharge Plan Visit Data Chief Complaint: Respiratory Problems Stated Complaint: COUGH,LOTS OF FLUID,EARS CLOGGING,DULL CHEST ACHE ED Provider: Darwin Kent Discharge Problem: Chest pain, Elevated troponin I level, Cough, PVC (premature ventricular contraction), Hx of Lyme disease Patient Disposition: Admitted As Inpatient Discharge Instructions Interventions: ED Discharge Assessment Last Done: 01/26/24 09:50 Discharge Problem: Chest pain Qualifiers: Chest pain type: precordial pain Qualified Code(s): R07.2 - Precordial pain Cough Qualifiers: Cough type: subacute Qualified Code(s): R05.2 - Subacute cough
--- NOTE | 2024-01-26 07:33 | Electrocardiogram Report ---
Test Reason : Blood Pressure : */* mmHG Vent. Rate : 99 BPM Atrial Rate : 99 BPM P-R Int : 142 ms QRS Dur : 90 ms QT Int : 344 ms P-R-T Axes : 73 26 91 degrees QTcB Int : 441 ms Sinus rhythm with occasional Premature ventricular complexes Possible Left atrial enlargement Poor R wave progression, consider anterior NE vs. lead placement vs. LVH Abnormal ECG When compared with ECG of 18-Sep-2023 13:19, (unconfirmed) No significant change was found Confirmed by Lion Tariq ([id number]) on 01/26/2024 7:33:27 AM Referred By: Confirmed By: Lion Tariq
[2024-01-26 07:39] LABS: Adenovirus PCR Not Detected (NotDetected); Bordetella parapertussis PCR Not Detected (NotDetected); Bordetella pertussis PCR Not Detected (NotDetected); Chlamydia pneumoniae PCR Not Detected (NotDetected); Coronavirus 229E PCR Not Detected (NotDetected); Coronavirus CoV-2 (COVID19)PCR Not Detected (NotDetected); Coronavirus HKU1 PCR Not Detected (NotDetected); Coronavirus NL63 PCR Not Detected (NotDetected); Coronavirus OC43PCR Not Detected (NotDetected); Human Metapneumovirus PCR Not Detected (NotDetected); Influenza A PCR Not Detected (NotDetected); Influenza B PCR Not Detected (NotDetected); Mycoplasma pneumoniae PCR Not Detected (NotDetected); Parainfluenza Virus 1 PCR Not Detected (NotDetected); Parainfluenza Virus 2 PCR Not Detected (NotDetected); Parainfluenza Virus 3 PCR Not Detected (NotDetected); Parainfluenza Virus 4 PCR Not Detected (NotDetected); Respiratory Syncytial VirusPCR Not Detected (NotDetected); Rhinovirus/Enterovirus PCR Not Detected (NotDetected)
[2024-01-26] MEDS: MAGNESIUM SULFATE / D5W 1 GM/100 ML BAG IV STA (07:54)
--- NOTE | 2024-01-26 08:19 | History & Physical Report ---
Date of Service January 26, 2024 Assessment & Plan (1) Elevated troponin I level: (2) Cough: (3) Chest pain: (4) Prostate cancer metastatic to bone: (5) Ischemic cardiomyopathy: (6) CAD (coronary artery disease): (7) S/P coronary artery stent placement: (8) Type 2 diabetes mellitus: Plan Patient is a 78-year-old male with past medical history of prostate cancer, CAD (stent placement in [facility] around 15 years ago), TIA x 2 (2017, 2021), DM-II, tobacco use without history of COPD (stopped smoking around 2 years ago), and GERD who was admitted due to chest pain. Chest pain - Aching sensation in substernal region that has been present for a few months - Troponins elevated at time of arrival in 550s and then decreased to 450s. - No friction rub or changes in chest ache when laying down or sitting up - Follows w/ cardiology; last TTE from 03/2023 showing severely dilated LV with severely reduced systolic function. EF 30-35%. Akinesis of the apex, mid anteroseptum, and mid inferolateral wall segments. Otherwise, global hypokinesis with severe hypokinesis of the basal inferolateral wall. Mild LVH. Mild to moderate MR. - Repeat TTE ordered - Given hx of radiation therapy, possible this may be playing a role in both his chest "pain" and cough (radiation pneumonitis?) - Will order chest CT to further evaluate findings of CXR - Symptom control for now - Admit to Med/Tele Cough - Chronic (contributing to chest pain from chest wall strain?) - Occasionally productive - DDx include effects of radiation therapy, un-diagnosed lung disease given smoking hx, viral cause, or other etiology - Will evaluate further w/ chest CT as detailed above - Zara bergman for sxs control DM-II - Hgb A1c was 5.8% (10/2023) - Hold home meds - Lantus and SSI CAD // Ischemic cardiomyopathy Hx of TIA - Continue home clopidogrel, lisinopril, metoprolol, and rosuvastatin GERD - Continue Pantoprazole 40 mg PO Dispo: Med/Tele Fluids: none Diet: DM-II, HH VTE ppx: Lovenox History of Present Illness Chief Complaint: Chest pain Primary Care Provider: Ross Jacobo DO Patient is a 78-year-old male with past medical history of prostate cancer, CAD (stent placement in [facility] around 15 years ago), TIA x 2 (2018, 2021), DM-II, tobacco use without history of COPD (stopped smoking around 2 years ago), and GERD who came to the emergency department after waking up with substernal chest pain. Patient describes the sensation as more of an ache in the substernal region without radiation that is constant and not affected by positional changes. He has had this ache for a while but it has never woken him up before such as it did this time, which prompted him to go to the ED. Patient denies any other associated symptoms to this aching chest. Also refers having cough that has lasted for few months that has been on most occasions productive of sputum. Patient was recently treated for Lyme disease and finished his 21-day course of doxycycline a few weeks ago. Has not had any recurrence of the symptoms since then. Of note, patient began treatment for prostate cancer after he came back on follow-up 2022. Patient was treated with radiation therapy over his cervical region after they noted a lesion on C5, and also got radiation therapy over his anterior chest because of some suspicious lesions on his right lung". Aside from radiation therapy, patient has been treated with leuprolide every 3 months (last dose was 2 weeks ago) and Xtandi. Patient denies having any fevers, chills, nausea, vomiting, diarrhea, abdominal pain, joint pain, weakness, or any other symptom. ED Course: EKG done x 2 without significant change between them and now specific ST wave changes, magnesium replacement with 1 g IV Labs/Imaging: CBC with no leukocytosis, hemoglobin of 12.2, platelets of 182. CMP without significant electrolyte abnormalities, creatinine 0.63, glucose of 155, magnesium of 1.5 (before placement), LFTs within normal limits. Troponin of 556.9 which decreased to 474.9 in 2-hour repeat. BNP of 1511. TSH of 1.82. Bio fire negative. ESR of 26. Chest x-ray with bibasilar left midlung densities that favor atelectasis or scarring without evidence of pulmonary emilie Medical History: [Reviewed] Medications: [Reviewed] Surgical History: [Reviewed] Family history: [Reviewed] Allergies: [Reviewed] Social History: [Reviewed] Allergies Allergy/AdvReac Type Severity Reaction Status Date / Time No Known Drug Allergies Allergy Unknown Verified 12/05/23 14:04 Home Medications Medication Instructions Recorded Confirmed Type cholecalciferol (vitamin D3) 50 50 mcg PO DAILY 12/25/21 01/26/24 History mcg (2,000 unit) capsule aqqsevkm-cfr-dqeec acid 0.4 1 tab PO DAILY 12/25/21 01/26/24 History mg-lycopene 300 mcg-lutein 250 mcg tablet (Centrum Silver) nitroglycerin 0.4 mg sublingual 0.4 mg sublingual .PRN/UD PRN 03/28/22 01/26/24 Rx tablet (Nitrostat) Chest Pain #20 tabs sildenafil 25 mg tablet (Viagra) 50 mg (2 x 25 mg) PO DAILY PRN 03/28/22 01/26/24 Rx erectile dysfunction #30 tabs quercetin 500 mg capsule 500 mg PO .QOD #30 caps 11/06/22 01/26/24 Rx clopidogrel 75 mg tablet See Rx Instructions .Route 01/07/23 01/26/24 Rx .COMPLEX #90 tabs rosuvastatin 40 mg tablet See Rx Instructions .Route 01/29/23 01/26/24 Rx .COMPLEX #90 tabs zinc 50 mg tablet 50 mg PO .QOD 04/10/23 01/26/24 History metoprolol succinate 200 mg 200 mg PO QAM #90 tabs 04/23/23 01/26/24 Rx tablet,extended release 24 hr calcium caltrate 1,200 mg PO DAILY 06/03/23 01/26/24 History diclofenac sodium 1 % topical gel 2 g topical QID PRN pain, moderate 06/14/23 01/26/24 Rx #100 grams tamsulosin 0.4 mg capsule 0.4 mg PO QPM #90 caps 06/17/23 01/26/24 Rx sitagliptin phosphate 50 1 tab PO BID #180 tabs 10/22/23 01/26/24 Rx mg-metformin 1,000 mg tablet (Janumet) lisinopril 20 mg tablet 20 mg PO DAILY #90 tabs 11/29/23 01/26/24 Rx triamcinolone acetonide 0.1 % 1 applic topical BID #15 grams 12/05/23 01/26/24 Rx topical cream enzalutamide 40 mg capsule (Xtandi) 80 mg PO DAILY 12/12/23 01/26/24 History pantoprazole 40 mg tablet,delayed 40 mg PO .3xWEEKLY #90 tabs 12/25/23 01/26/24 Rx release (Protonix) Past Med/Surg History Problem List (Updated 01/26/24 @ 08:38 by Darwin Kent MD) Elevated troponin I level (Acute) PVC (premature ventricular contraction) (Acute) Cough (Acute) Chest pain (Acute) Prostate cancer metastatic to bone (Chronic) Mitral regurgitation HTN (hypertension) HLD (hyperlipidemia) BPH w urinary obs/LUTS Tobacco use disorder Slurred speech Cerebral aneurysm, nonruptured Epiglottic lesion Ischemic cardiomyopathy CAD (coronary artery disease) F/U DR BENTON BRADY S/P coronary artery stent placement 2005-1 STENT C Parotid mass Supraglottic lesion Type 2 diabetes mellitus Encounter for pre-operative examination History of colon polyps Prostate cancer 05/15/17 Diagnosis Erectile dysfunction Lower urinary tract symptoms Osteopenia due to cancer therapy Medical History Cerebral aneurysm DX'D 07/2021-UNDER OBSERVATION GERD (gastroesophageal reflux disease) Prostate cancer TREATED WITH RADIATION No pertinent family history TIA (transient ischemic attack) 07/2017 AND 07/2021-PLACED ON PLAVIX SINCE 2017-F/U DR WATSON SLURRED SPEECH, RESOLVED Surgical History History of vasectomy 1978 History of tonsillectomy 1952 H/O umbilical hernia repair 1999 Family History Mother , age 90 of congestive heart failure. CHF (congestive heart failure) Heart disease Hx of CABG Father , age 94 of heart disease Heart disease H/O heart artery stent Brother Heart disease Age 41yo Sister Ovarian cancer Sister Diabetes Son Sleep apnea Daughter No problems noted. 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: No Beliefs That Will Affect Care: None marital status: Current Living Situation: Spouse current occupational status: retired current occupation: retired from the [employer] How many Children do You have: 2 Feels Safe at Home: Yes Safety Concerns: Feels Safe At This Time Childhood Exposure to Second-Hand Smoke: No Diet: regular caffeine: Yes during the past year weight has: decreased > 10 lbs Dental Care, Regularly: Yes Physical Activity Frequency: Daily Seatbelt Use: always Sunscreen Use: No Assistive Devices: None Review of Systems Review of Systems: As per HPI Physical Exam Physical Exam: GENERAL: AAOx3, comfortable, afebrile, NAD HEAD: AT, NC EYES: EOM intact, CAROL CHEST: no tenderness on palpation of anterior chest wall, no obvious deformity CARDIO: RRR, no r/m/g PULMONARY: CTA b/l, normal respiratory effort, no respiratory distress, breathing at room air GI: sift, nontender, nondistended EXTREMITIES: no swelling or calf tenderness in b/l LE SKIN: no rashes Results & Data Results & Data Vital Signs (Past 12 Hours) Vital Signs Temp Pulse Pulse Resp BP BP Pulse Ox 01/26/24 06:48 89 16 134/105 H 93 01/26/24 06:44 93 01/26/24 06:17 89 16 134/87 93 01/26/24 06:16 100 H 01/26/24 06:02 36.6 C 101 H 18 137/87 91 O2 Del Method 01/26/24 06:48 Room Air 01/26/24 06:44 Room Air 01/26/24 06:17 Room Air 01/26/24 06:16 01/26/24 06:02 Room Air Code Status & VTE Plan VTE Prophylaxis Plan VTE Prophylaxis will be ordered: Yes Supervising Physician Co-Signing Physician Notes I personally examined the patient and verified all rubi points of history and exam, discussed case, and agree with decision making with Dr Zak flaherty x 1-2months. vitals noted nad heent nc at mmm breathing unlabored no accessory muscles good effort skin no rashes no pallor or icterus. labs/diagnostics reviewed and showed Xray/CT to pt and cough/elevated troponin - with known and apparently fairly severe ischemic cardiomyopathy - echo looking comparable to prior and troponin not rising all makes it far more likely that troponin is chronic vs less likely mild demand superimposed on severe cardiomyopathy. cough itself ?pulmonary edema, COPD exac/atypical infection, ?both -lasix now (discussed if symptoms abruptly improve then it would be due to edema) -azithromycin and steroids (discussed this would take longer for symptom resolution) ---> highly likely home tomorrow but follow into tomorrow so that if improves and steroids/zithromax not needed can dc; otherwise anticipate dc tomorrow on prednisone burst, zithromax, and some degree of pulmonary edema plan (likely daily weights, Na restrict, outpt f/u) -discussed nodes - likely reactive, but repeat CT 6 months otherwise as above lovenox DVT proph Resident Activity Tracking Resident Involvement: Resident Care Provided Care Provided: Adult Hospital Medicine
[2024-01-26] MEDS ORDERED: ALBUTEROL HFA 8 GM INHALER INH PRN (09:53)
[2024-01-26 10:46] LABS: Thyroid Stimulating Hormone 1.826 uIu/ml (0.300-4.500)
[2024-01-26] MEDS: CEROVITE ADV FORMULA TAB PO SCH (12:18)
[2024-01-26] MEDS: CHOLECALCIFEROL 25 MCG (1000 UNITS) TAB PO SCH (12:19)
[2024-01-26] MEDS: CALCIUM 600MG + VIT D 400 IU TAB PO SCH (12:19)
[2024-01-26] MEDS: ENOXAPARIN INJ 40 MG/0.4 ML SYR SQ SCH (12:19)
[2024-01-26] MEDS: lisinopril 20 MG TAB PO SCH (12:19)
[2024-01-26] MEDS: FLUTICASONE PROPIONATE NA SPR 16 GM BTL NAE SCH (12:19)
[2024-01-26] MEDS ORDERED: Nursing to Pharmacy Communication SCH (14:00)
--- NOTE | 2024-01-26 14:09 | XCELERA ---
[id number]
[2024-01-26] MEDS: ZINC SULFATE 220 MG CAPSULE PO SCH (14:23)
[2024-01-26] MEDS: CLOPIDOGREL BISULFATE 75 MG TAB PO SCH ×2 (14:23→17:06)
[2024-01-26] MEDS: ROSUVASTATIN CALCIUM 20 MG TAB PO SCH ×2 (14:24→17:07)
[2024-01-26] MEDS: METOPROLOL SUCC 50MG EXT REL TAB PO SCH ×2 (14:24→17:06)
[2024-01-26] MEDS ORDERED: GLUCOSE 10 TAB/TUBE PO PRN (14:30)
[2024-01-26] MEDS ORDERED: CARBOHYDRATES FOR HYPOGLYCEMIA PO PRN (14:30)
[2024-01-26] MEDS ORDERED: DEXTROSE 50% 50 ML SYRINGE IV PRN (14:30)
[2024-01-26] MEDS ORDERED: GLUCAGON FOR INJ 1 MG VIAL SQ PRN (14:30)
[2024-01-26] MEDS ORDERED: GLUCOSE 40% GEL 15 GM TUBE PO PRN (14:30)
[2024-01-26] MEDS ORDERED: BENZONATATE 100 MG CAPSULE PO PRN (14:43)
[2024-01-26] MEDS ORDERED: ACETAMINOPHEN 325 MG TAB PO PRN (14:44)
[2024-01-26] MEDS ORDERED: MELATONIN 3 MG TAB PO PRN (14:44)
[2024-01-26] MEDS ORDERED: POLYETHYLENE (MIRALAX) 17 GM PACK PO PRN (14:44)
[2024-01-26] MEDS ORDERED: ONDANSETRON 4 MG OD TAB PO PRN (14:44)
[2024-01-26] MEDS: INSULIN ASPART PER UNIT CHARGE SC SCH (17:57)
[2024-01-26 18:15] LABS: Appearance Urine Clear (Clear); Bilirubin Urine Negative (Negative); Blood Urine Negative (Negative); Color Urine Yellow; Glucose Urine UA Negative (Negative); Ketones Urine Negative (Negative); Leukocyte Esterase Urine Negative (Negative); Nitrite Urine Negative (Negative); Protein Urine Negative (Negative); Specific Gravity Urine 1.011 (1.000-1.030); Urobilinogen Urine Negative (Negative); pH Urine >= 9.0 (4.5-7.5)
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
--- NOTE | 2024-01-26 19:25 | Billing Data ---
Date of Service January 26, 2024 Coding Level of Care Code 65070 INT INP/OBS CARE
[2024-01-26] MEDS: FUROSEMIDE INJ 20 MG/2 ML VIAL IV ONE (19:33)
[2024-01-26] MEDS: AZITHROMYCIN 500 MG in DEXTROSE 5% 250 ML IV SCH (19:38)
[2024-01-26] MEDS: TAMSULOSIN HCL 0.4 MG CAP PO SCH (20:44)
[2024-01-26] MEDS: LANTUS PER UNIT CHARGE SQ SCH (20:46)
[2024-01-26] MEDS: methylPREDNISolone 40 MG in SYRINGE 0 ML IV SCH (20:46)
[2024-01-26] MEDS ORDERED: methylPREDNISolone 1000 MG/16 ML IV SCH (21:00)
[2024-01-26] MEDS: NITROGLYCERIN SL 0.4 MG/TAB TAB SL PRN (22:17)
--- NOTE | 2024-01-26 22:38 | Communication Note ---
Date of Service: January 26, 2024 Patient was evaluated at bedside due to having chest pain. Patient was having chest pain when admitted to the hospital. Started to have some chest pain after laying down at night which improved with nitro. Did have a elevated troponin when he first came into the ED. States that he was getting very sweaty and the chest pain started. He also required more oxygenation. EKG done showed no acute changes. Troponin downtrending. Gave aspirin. Chest x-ray was performed which shows some worsening in the right lower lobe. However this was right at the time that he received his first dose of Lasix and antibiotics. Did not make any changes to the plan based on chest x-ray. Will continue to monitor overnight and transfer to PCU/tolerate in case intervention is needed.
[2024-01-26] MEDS: ASPIRIN 81 MG CHEW PO STA (23:44)
[2024-01-27 00:50] LABS: Magnesium 1.9 mg/dl (1.7-2.4)
[2024-01-27 01:03] LABS: Troponin I High Sensitivity 253.6 pg/ml (0-20)
[2024-01-27 06:16] LABS: Hematocrit (blood only) 35.8 % (42.0-52.0); Hemoglobin 11.8 g/dl (14.0-18.0); Mean Corpuscular Hemoglobin 28.8 pg (25.0-34.0); Mean Corpuscular Volume 87.3 fL (80.0-100.0); Mean Platelet Volume 9.7 fL (9.4-12.4); Platelet Count 193 K/uL (130-400); RDW Coefficient of Variation 13.5 % (11.5-14.5); RDW Standard Deviation 42.8 fL (36.4-46.3); White Blood Count 6.01 K/ul (4.8-10.8)
[2024-01-27 06:52] LABS: BUN Creatinine Ratio 24.1 (10-20); Creatinine Clr Calc Pharmacy 79.5 ml/min; Est GFR (African American) 101.1 ml/min; Est GFR (Non-African American) 87.2 ml/min; Magnesium 1.9 mg/dl (1.7-2.4); Potassium 4.8 mmol/L (3.5-5.1)
--- NOTE | 2024-01-27 07:30 | Hospitalist Progress Note ---
Date of Service January 27, 2024 Assessment & Plan (1) Elevated troponin I level: (2) Cough: (3) Chest pain: (4) Prostate cancer metastatic to bone: (5) Ischemic cardiomyopathy: (6) CAD (coronary artery disease): (7) S/P coronary artery stent placement: (8) Type 2 diabetes mellitus: (9) Diaphoresis: Plan Patient is a 78-year-old male with past medical history of prostate cancer, CAD (stent placement in [facility] around 15 years ago), TIA x 2 (2017, 2021), DM-II, tobacco use without history of COPD (stopped smoking around 2 years ago), and GERD who was admitted due to chest pain. Chest pain - aching sensation in substernal region that has been present for a few months, started randomly in October - Troponins elevated at time of arrival in 550s and then decreased to 450s, today - No friction rub or changes in chest ache when laying down or sitting up - Follows w/ cardiology; last TTE from 03/2023 showing severely dilated LV with severely reduced systolic function. EF 30-35%. Akinesis of the apex, mid anteroseptum, and mid inferolateral wall segments. Otherwise, global hypokinesis with severe hypokinesis of the basal inferolateral wall. Mild LVH. Mild to moderate MR. - Repeat TTE showed EF 25-30% but otherwise noted ot be essentially unchanged from one in 2022 - Given hx of radiation therapy, possible this may be playing a role in both his chest "pain" and cough (radiation pneumonitis?) - chest CT showed small bilateral pleural effusions, mild interstitial pulm edema, mediastinal nodes - Symptom control for now, seemed to improve from yesterday significantly, pt was given nitro and lasix so hard to tell which helped him ultimately - cardiac vs GERD vs radiation consequence are some etiologies possibly at play, cardiology consulted Diaphoresis - suspect this is possibly due to taking enzalutamide, as hot flashes are noted in 13-27% per UTD as opposed to cardiac in nature, but cannot r/o CAD given pt hx - will consult cardio for episode of diaphoresis and concern for atypical chest pain Cough - Chronic (contributing to chest pain from chest wall strain?) - Occasionally productive - DDx include effects of radiation therapy, un-diagnosed lung disease given smoking hx, viral cause, or other etiology - Will evaluate further w/ chest CT as detailed above - Zara bergman for sxs control DM-II - Hgb A1c was 5.8% (10/2023) - Hold home meds - Lantus and SSI CAD // Ischemic cardiomyopathy Hx of TIA - Continue home clopidogrel, lisinopril, metoprolol, and rosuvastatin GERD - Continue Pantoprazole 40 mg PO VTE ppx: Lovenox Admission and Anticipated Discharge Date Admission Date: January 26, 2024 Supervising Physician Co-Signing Physician Notes ATTESTATION I also saw the patient and confirmed rubi portions of the history and exam. I agree with the impression and plan in the resident documentation, and as summarized below. Upon our exam this morning, the patient is without complaints. His is at bedside. Overnight had an episode of rather extreme diaphoresis. Patient states that he was moved to his new (current) room which was much cooler, and shortly thereafter, the diaphoresis resolved. He does not recall having any chest pain last evening. He did receive some nitroglycerin. Today, he has had neither the diaphoresis nor any chest pain, though he has been in bed for most of the day. It sounds like he is describing to phenomenons; a chronic epigastric discomfort, and a intermittent sternal pain, though is not clear if this is exertional or nonexertional, or both. EXAM 110/61, 84, 20, 36.7, 96% on room air Pleasant and alert. No distress upon my exam. Heart regular rate and rhythm Lungs clear throughout with nonlabored respirations DATA Labs Hemoglobin 11.8, platelet count 193 BMP is unremarkable except for an elevated glucose of 150. Troponin I 474, 380, 253 Imaging Chest x-ray from 01/26/2024 shows interval progression of the mild interstitial pulmonary edema and trace bilateral pleural effusions. IMPRESSION & PLAN CAD, Elevated troponin, ischemic cardiomyopathy Metastatic prostate cancer Consult cardiology, consider cath Diaphoresis could be secondary to his hormonal therapy for his prostate cancer, though given his history, need to exclude unstable angina Continue azithromycin; will change methylprednisolone to p.o. prednisone Additional after review of cardiology consultation Additional per resident documentation Subjective Today, pt was seen this morning and states he is feeling well. He states he has not had any chest discomfort or pain since sometime earlier yesterday. He states overnight he had no pain but did get relatively diaphoretic and so everyone here got worried and had him take nitroglycerine. He states his breathing feels bett er and his chest feels "structural analysis engineer" today. He states he normally follows with cardiology Dr. Gan. is present today as well and states that he was diagnosed with lyme about a month ago and initially complained of maybe slightly worse chest pain across his chest at the time for a few days that has since resolved. No orthopnea. Chest discomfort started in October one day and then was daily, all day, not worse with activity, not better with rest. No other concurrent complaints with it. does note he struggles with the heat since he has been on enzalutamide for prostate cancer and that dose was recently cut in half since he was not tolerating it, and she notes he did not have a dose at all yesterday. Episode of sweating resolved within 10 minutes of being in a cooler room. Review of Systems Review of Systems: Per HPI. Physical Exam Physical Exam: General:Alert and oriented, no acute distress, HEENT: Normocephalic, moist oral mucosa, Cardio: Regular rate and rhythm Resp:Lungs clear to auscultation b/l, no wheezes or rhonchi, GI: Soft and nontender, Skin: Warm, pink, dry, Results & Data Results & Data Vital Signs (Past 12 Hours) Vital Signs Temp Pulse Pulse Resp BP BP Pulse Ox 01/27/24 07:01 36.7 C 46 L 20 107/61 95 01/27/24 03:21 36.5 C 70 18 108/63 92 01/27/24 00:42 01/27/24 00:38 36.4 C 77 20 112/77 93 01/27/24 00:00 77 01/26/24 23:44 96 01/26/24 23:00 78 142/94 H 01/26/24 22:49 90 01/26/24 22:26 92 01/26/24 22:20 91 01/26/24 22:09 80 01/26/24 22:05 36.9 C 79 18 113/78 89 L 01/26/24 20:04 36.3 C L 86 20 121/78 94 01/26/24 19:30 O2 Del Method O2 Flow Rate 01/27/24 07:01 Nasal Cannula 2 01/27/24 03:21 Nasal Cannula 2.0 01/27/24 00:42 Nasal Cannula 2 01/27/24 00:38 Nasal Cannula 2 01/27/24 00:00 01/26/24 23:44 Nasal Cannula 2 01/26/24 23:00 01/26/24 22:49 Nasal Cannula 4 01/26/24 22:26 Nasal Cannula 2 01/26/24 22:20 Nasal Cannula 3 01/26/24 22:09 01/26/24 22:05 Room Air 01/26/24 20:04 Room Air 01/26/24 19:30 Room Air Resident Activity Tracking Resident Involvement: Resident Care Provided Care Provided: Adult Hospital Medicine
[2024-01-27] MEDS: ENZALUTAMIDE PO SCH (08:13)
[2024-01-27] MEDS: PANTOprazole 40 MG TAB PO SCH (08:18)
--- NOTE | 2024-01-27 08:30 | XRay Report ---
XR chest 1V portable HISTORY: Atypical chest pain. COMPARISON: Chest CT 01/26/2024. FINDINGS: No pneumothorax. The heart remains enlarged. There is interstitial/vascular thickening sugg estive of mild pulmonary edema. Bibasilar densities and trace bilateral pleural effusions have progre ssed. IMPRESSION: 1. Interval progression of the mild interstitial pulmonary edema and trace bilateral pleural effusion s. 2. Bibasilar densities have also progressed. ACT 112: Negative or not required by law. Electronically signed by: Waqar Shah M.D. 01/27/2024 8:28 AM
--- NOTE | 2024-01-27 13:23 | Pre Anesthesia Assessment ---
Date of Service January 27, 2024 Pre Sedation Assessment Vital Signs Temp Pulse Pulse Resp BP BP Pulse Ox 01/27/24 11:00 98.1 F 84 20 110/61 96 01/27/24 08:00 01/27/24 07:01 98.1 F 46 L 20 107/61 95 01/27/24 03:21 97.7 F 70 18 108/63 92 01/27/24 00:42 01/27/24 00:38 97.6 F 77 20 112/77 93 01/27/24 00:00 77 01/26/24 23:44 96 01/26/24 23:00 78 142/94 H 01/26/24 22:49 90 01/26/24 22:26 92 01/26/24 22:20 91 01/26/24 22:09 80 01/26/24 22:05 98.4 F 79 18 113/78 89 L 01/26/24 20:04 97.3 F L 86 20 121/78 94 01/26/24 19:30 01/26/24 15:19 112 H 01/26/24 14:56 01/26/24 14:10 01/26/24 14:02 99.1 F 106 H 20 136/85 94 Pulse Ox O2 Del Method O2 Del Method O2 Flow Rate 01/27/24 11:00 Room Air 01/27/24 08:00 Nasal Cannula 01/27/24 07:01 Nasal Cannula 2 01/27/24 03:21 Nasal Cannula 2.0 01/27/24 00:42 Nasal Cannula 2 01/27/24 00:38 Nasal Cannula 2 01/27/24 00:00 01/26/24 23:44 Nasal Cannula 2 01/26/24 23:00 01/26/24 22:49 Nasal Cannula 4 01/26/24 22:26 Nasal Cannula 2 01/26/24 22:20 Nasal Cannula 3 01/26/24 22:09 01/26/24 22:05 Room Air 01/26/24 20:04 Room Air 01/26/24 19:30 Room Air 01/26/24 15:19 01/26/24 14:56 94 Room Air 01/26/24 14:10 Room Air 01/26/24 14:02 Room Air Cardiovascular + regular rate Respiratory + respiratory effort normal Pre-Sedation Airway Assessment Smoking Status: Former smoker Hx Sleep Apnea: No Hx Difficult Intubation: No Short, Thick Neck: No Thyromental Distance: < 3.5 Finger Breadths Oral Cavity: + Dental Abnormalities Mallampati Class: III ASA: ASA3 Procedure Planning Contraindications for Sedation: none Current Medications Reviewed: Yes Notes The planned sedation has been discussed with the patient. Informed Consent was obtained. I have identified the patient, determined the appropriateness of sedation and have assessed the patient immediately prior to the procedure. All medicine(s) and interventions are by my order.
[2024-01-27] MEDS: niCARdipine HCL INJ 2.5 MG/ML 10 ML AMP ONE (13:37)
[2024-01-27] MEDS: NITROGLYCERIN/D5W 100MCG/ML 20ML SYR ONE (13:37)
[2024-01-27] MEDS: HEPARIN (PORCINE) 1000 UNIT/ML 10 ML (CATH LAB USE ONLY) ONE ×2 (14:12→14:14)
[2024-01-27] MEDS: MIDAZOLAM HCL 1 MG/ML 2ML VIAL ONE (14:12)
[2024-01-27] MEDS: OPTIRAY 350 ONE (14:13)
[2024-01-27] MEDS: fentaNYL citrate PF 100 MCG/2 ML VIAL ONE (14:13)
--- NOTE | 2024-01-27 14:16 | Cardiology Consultation ---
Date of Consultation January 27, 2024 Assessment & Plan (1) Acute HFrEF (heart failure with reduced ejection fraction): (2) Elevated troponin I level: (3) CAD (coronary artery disease): (4) S/P coronary artery stent placement: (5) Ischemic cardiomyopathy: (6) HLD (hyperlipidemia): (7) Angina pectoris: Plan ASSESSMENT/PLAN: 1. Acute heart failure with reduced EF: Presentation and then response to diuretic therapy, suggests heart failure. Discussed diagnosis. Recommend low- sodium diet, less than 2000 mg daily. Recommended that he read labels at home. Recommended daily weights. Will discontinue lisinopril and initiate Entresto, at least 36 hours from most recent ROGERS inhibitor dose. Continue metoprolol succinate. Will initiate spironolactone 25 mg daily. Recommend SGLT2 inhibitor. He appears euvolemic on exam this morning. Can start Lasix 20 mg once daily p.o. He continues to decline ICD for primary prevention. Discussed and recommended heart failure program. 2. CAD s/p LAD PCI: Had chest discomfort and elevated troponin with new heart failure diagnosis. Given exertional symptoms this past few months and now rest symptoms with heart failure, recommend cardiac catheterization. Risks and benefits of the procedure were discussed with him in detail. He was agreeable to proceed. Discussed with Dr. Ragland and appreciate his assistance. Continue antiplatelet therapy indefinitely, chronically on Plavix for history of TIA. Continue beta-williams. High intensity statin therapy. 3. Elevated troponin: Plan as above. 4. Cardiomyopathy: Ischemic. He has declined ICD for primary prevention. He has met with electrophysiology in the past. Discussed once again role of ICD for primary prevention. He continues to decline. He was asked to notify cardiology if he wishes to pursue. Medical therapy as outlined. 5. Dyslipidemia: Most recent LDL was excellent. Continue high intensity statin therapy. 6. Disposition: Cardiology will continue to follow. Dr. Tariq will resume cardiology care tomorrow. Cardiac catheterization today with Dr. Ragland. Patient care communicated with primary hospitalist, Dr. Escalante. Will arrange close follow-up in the cardiology outpatient office and with heart failure program. Highly complex medical issues. Thank you for allowing me to participate in the care of your patient. Please call for any other questions or concerns. Sincerely, Ron Gan M.D. History of Present Illness Reason for Consultation: "chest discomfort, known cardio pt" Requesting Physician: Heather Escalante DO Attending Physician: Jd Davenport DO History of Present Illness Mr. Curiel is a very pleasant 78-year-old gentleman with a history significant for LAD infarct s/p PCI, CAD, ischemic cardiomyopathy, history of LV apical thrombus, recurrent TIA, borderline diabetes, dyslipidemia, and prostate cancer. In 2004 he was at a [employer] football game and developed heartburn symptoms which was found to be LAD [place] and he was flown to [facility] [place] catheterization and PCI. His mid LAD was occluded and otherwise had mild nonobstructive CAD. He underwent mid LAD PCI with 3.5 x 16 mm REID. Since then, he has had LAD wall motion abnormality and reduced EF, mostly documented in the 35-40% range prior to hospitalization at [facility] on 08/08/2021, and has declined ICD. He was hospitalized on 08/08/2021 with TIA symptoms, which is his second TIA overall (2017 and 2021). Brain MRI was unremarkable for stroke. He has had the following studies/procedures: 1. Cardiac catheterization 02/03/2005 [facility]: Mid LAD 100%. Ostium circumflex 30%. Large OM1 proximal 30%. Dominant RCA with aberrant anterior takeoff. Ostial ramus 30%. Mid LAD PCI with 3.5 x 16 mm taxis REID. Mechanical thrombectomy performed. 2. Echo 02/04/2005 [facility]: Moderately reduced LV systolic function. EF 40%. LV apical thrombus. Mid anteroseptum and apex akinetic. No significant valvular abnormalities. 3. Echo 08/17/2014 [facility]): Moderately reduced LV systolic function. EF 35-40%. Thinning and akinesis of the apex, anterior, anterolateral, anteroseptal adan from base to apex. Global hypokinesis. Mildly dilated right atrium. No significant valvular abnormalities. 4. Event monitor 09/05/2017 to 10/04/2017 [place]: Sinus average heart rate 83. No arrhythmia. No symptoms. 5. Echo 08/09/2021 [facility]: Moderately dilated LV with moderately reduced systolic function. EF 30-35%. Large area of apical akinesis, including mid anteroseptum. Hypokinesis of the mid anterior, mid anterolateral wall segments. Severe hypokinesis of the inferolateral wall. Mild LVH. Moderate MR. 6. Echo 04/09/2023: Severely dilated LV. EF 30-35%. Akinesis of the apex, mid anteroseptum, and mid inferolateral wall segments. Otherwise, global hypokinesis with severe hypokinesis of the basal inferolateral wall. Mild LVH. Mild to moderate MR. 7. Echo 01/26/2024 [facility]: Severely dilated LV. EF 25-30%. Akinesis of the apex, mid anteroseptum, mid inferolateral wall segments. Otherwise, global hypokinesis with severe hypokinesis of the basal inferolateral wall. Severe left atrial dilation. Mild LVH. Mild MR. He was hospitalized on 01/26/2024 with chest discomfort. He describes the "discomfort" as a substernal discomfort and denies having "pain." The discomfort occurred at 5 AM on 01/26/2024 and improved after diuretics throughout the day on 01/26/2024 while hospitalized. He has experienced the chest discomfort intermittently for the past few days prior to presentation. He also was more short of breath than typical. Both symptoms improved with Lasix. He also has been coughing more recently. His notes that he coughs throughout the night as well, but he denies orthopnea. His cough is still present but has improved with diuresis. Overnight, had an episode of chest discomfort which apparently improved with nitroglycerin. He also became diaphoretic. He has noted decreased exercise tolerance while using a self-propelled lawnmowe r, specifically when compared to last year. He denies edema, syncope, near syncope. He recently was treated with doxycycline for Lyme disease. He also has been on Xtandi this year for his prostate cancer. In general he has lost weight but has decreased appetite with his medical therapies. He is unable to weigh himself at home. He does not maintain a low-sodium diet. He denies melena, hematochezia, hematuria, or other bleeding. He denies palpitations. Review of systems: As above. Family history: Brother from [place] at the age of 41. Social history: Quit smoking on 08/08/2021 after approximately 1 pack per day since the age of 20. No alcohol or drug abuse. Lives at home with his . Has a son and a daughter. Multiple grandchildren. He is retired from the [employer]. 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 He then moved back to [facility] in January of 2020. His was present at the bedside. Allergies Allergy/AdvReac Type Severity Reaction Status Date / Time No Known Drug Allergies Allergy Unknown Verified 12/05/23 14:04 Home Medications Medication Instructions Recorded Confirmed Type cholecalciferol (vitamin D3) 50 50 mcg PO DAILY 12/25/21 01/26/24 History mcg (2,000 unit) capsule yfhonklk-mzq-iwmhd acid 0.4 1 tab PO DAILY 12/25/21 01/26/24 History mg-lycopene 300 mcg-lutein 250 mcg tablet (Centrum Silver) nitroglycerin 0.4 mg sublingual 0.4 mg sublingual .PRN/UD PRN 03/28/22 01/26/24 Rx tablet (Nitrostat) Chest Pain #20 tabs sildenafil 25 mg tablet (Viagra) 50 mg (2 x 25 mg) PO DAILY PRN 03/28/22 01/26/24 Rx erectile dysfunction #30 tabs quercetin 500 mg capsule 500 mg PO .QOD #30 caps 11/06/22 01/26/24 Rx clopidogrel 75 mg tablet See Rx Instructions .Route 01/07/23 01/26/24 Rx .COMPLEX #90 tabs rosuvastatin 40 mg tablet See Rx Instructions .Route 01/29/23 01/26/24 Rx .COMPLEX #90 tabs zinc 50 mg tablet 50 mg PO .QOD 04/10/23 01/26/24 History metoprolol succinate 200 mg 200 mg PO QAM #90 tabs 04/23/23 01/26/24 Rx tablet,extended release 24 hr calcium caltrate 1,200 mg PO DAILY 06/03/23 01/26/24 History diclofenac sodium 1 % topical gel 2 g topical QID PRN pain, moderate 06/14/23 01/26/24 Rx #100 grams tamsulosin 0.4 mg capsule 0.4 mg PO QPM #90 caps 06/17/23 01/26/24 Rx sitagliptin phosphate 50 1 tab PO BID #180 tabs 10/22/23 01/26/24 Rx mg-metformin 1,000 mg tablet (Janumet) lisinopril 20 mg tablet 20 mg PO DAILY #90 tabs 11/29/23 01/26/24 Rx triamcinolone acetonide 0.1 % 1 applic topical BID #15 grams 12/05/23 01/26/24 Rx topical cream enzalutamide 40 mg capsule (Xtandi) 80 mg PO DAILY 12/12/23 01/26/24 History pantoprazole 40 mg tablet,delayed 40 mg PO .3xWEEKLY #90 tabs 12/25/23 01/26/24 Rx release (Protonix) Problem List (Updated 01/27/24 @ 14:31 by Benton Gan MD) Angina pectoris Acute HFrEF (heart failure with reduced ejection fraction) Diaphoresis Elevated troponin I level (Acute) PVC (premature ventricular contraction) (Acute) Cough (Acute) Chest pain (Acute) Prostate cancer metastatic to bone (Chronic) Mitral regurgitation HTN (hypertension) HLD (hyperlipidemia) BPH w urinary obs/LUTS Tobacco use disorder Slurred speech Cerebral aneurysm, nonruptured Epiglottic lesion Ischemic cardiomyopathy CAD (coronary artery disease) F/U DR BENTON BRADY S/P coronary artery stent placement 2004-1 [facility] Parotid mass Supraglottic lesion Type 2 diabetes mellitus Encounter for pre-operative examination History of colon polyps Prostate cancer 05/15/17 Diagnosis Erectile dysfunction Lower urinary tract symptoms Osteopenia due to cancer therapy Patient History Medical History Cerebral aneurysm DX'D 07/2021-UNDER OBSERVATION GERD (gastroesophageal reflux disease) Prostate cancer TREATED WITH RADIATION No pertinent family history TIA (transient ischemic attack) 07/2017 AND 07/2021-PLACED ON PLAVIX SINCE 2017-F/U DR WATSON SLURRED SPEECH, RESOLVED Surgical History History of vasectomy 1978 History of tonsillectomy 1952 H/O umbilical hernia repair 1999 Family History Mother , age 90 of congestive heart failure. CHF (congestive heart failure) Heart disease Hx of CABG Father , age 94 of heart disease Heart disease H/O heart artery stent Brother Heart disease Age 41yo Sister Ovarian cancer Sister Diabetes Son Sleep apnea Daughter No problems noted. 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 Alert and oriented. HEENT: Anicteric sclera. Neck: No JVD. No hepatojugular reflux. Cardiac: No ventricular heave. Regular with occasional ectopy. Normal S1-S2. 1/6 systolic murmur. Pulmonary: Clear to auscultation bilaterally without wheezes, rales, or rhonchi. Abdomen: Soft, nontender, nondistended, with normoactive bowel sounds. No bruits noted. Extremities: 2+ radial pulses bilaterally. 2+ posterior tibialis pulses bilaterally. No edema. No cyanosis. Psychiatric: Affect appears appropriate. Results & Data Vital Signs (Past 12 Hours) Vital Signs Temp Pulse Resp BP BP Pulse Ox O2 Del Method 01/27/24 11:00 36.7 C 84 20 110/61 96 Room Air 01/27/24 08:00 Nasal Cannula 01/27/24 07:01 36.7 C 46 L 20 107/61 95 Nasal Cannula 01/27/24 03:21 36.5 C 70 18 108/63 92 Nasal Cannula O2 Flow Rate 01/27/24 11:00 01/27/24 08:00 01/27/24 07:01 2 01/27/24 03:21 2.0 Intake & Output 01/25/24 01/26/24 01/27/24 01/28/24 06:59 06:59 06:59 06:59 Intake Total 355.000 / 355.000 Output Total 650 / 650 Balance -295.000 / -295.000 Weight 178 lb 2.136 oz 175 lb 14.862 oz Laboratory Results Laboratory Results - last 24 hr 01/26/24 01/26/24 01/26/24 16:50 18:02 20:16 WBC RBC Hgb Hct MCV MCH MCHC RDW Std Deviation RDW Coeff of Marily Plt Count MPV Sodium Potassium Chloride Carbon Dioxide Anion Gap BUN Creatinine Est Cr Clr Drug Dosing Est GFR ( Amer) Est GFR (Non-Af Amer) BUN/Creatinine Ratio Glucose POC Glucose 95 170 H Calcium Magnesium Troponin I High Sens Urine Color Yellow Urine Appearance Clear Urine pH >= 9.0 H Ur Specific [place] 1.011 Urine Protein Negative Urine Glucose (UA) Negative Urine Ketones Negative Urine Blood Negative Urine Nitrite Negative Urine Bilirubin Negative Urine Urobilinogen Negative Ur Leukocyte Esterase Negative 01/26/24 01/26/24 01/27/24 22:35 22:56 00:16 WBC RBC Hgb Hct MCV MCH MCHC RDW Std Deviation RDW Coeff of Marily Plt Count MPV Sodium Potassium Chloride Carbon Dioxide Anion Gap BUN Creatinine Est Cr Clr Drug Dosing Est GFR ( Amer) Est GFR (Non-Af Amer) BUN/Creatinine Ratio Glucose POC Glucose 196 H Calcium Magnesium 1.9 Troponin I High Sens 380.5 H* 253.6 H* D Urine Color Urine Appearance Urine pH Ur Specific [place] Urine Protein Urine Glucose (UA) Urine Ketones Urine Blood Urine Nitrite Urine Bilirubin Urine Urobilinogen Ur Leukocyte Esterase 01/27/24 01/27/24 01/27/24 05:50 07:00 11:25 WBC 6.01 RBC 4.10 L Hgb 11.8 L Hct 35.8 L MCV 87.3 MCH 28.8 MCHC 33.0 RDW Std Deviation 42.8 RDW Coeff of Marily 13.5 Plt Count 193 MPV 9.7 Sodium 136 Potassium 4.8 D Chloride 103 Carbon Dioxide 27 Anion Gap 6 BUN 19 Creatinine 0.79 Est Cr Clr Drug Dosing 79.5 Est GFR ( Amer) 101.1 Est GFR (Non-Af Amer) 87.2 BUN/Creatinine Ratio 24.1 H Glucose 150 H POC Glucose 143 H 132 H Calcium 9.0 Magnesium 1.9 Troponin I High Sens Urine Color Urine Appearance Urine pH Ur Specific [place] Urine Protein Urine Glucose (UA) Urine Ketones Urine Blood Urine Nitrite Urine Bilirubin Urine Urobilinogen Ur Leukocyte Esterase Diagnostic Findings Telemetry personally reviewed: Sinus rhythm. PVCs. 3-5 wide-complex runs. Echo report reviewed from 01/26/2024 as noted above in HPI. ECGs personally reviewed: ECG 01/26/2024 at 6:14 AM: Sinus rhythm 99 bpm. PVCs. Poor R wave progression. Septal infarct. Nonspecific ST abnormality. ECG 01/26/2024 2210: Sinus rhythm [address] abnormality. Septal infarct. Poor R wave progression. ECG 01/26/2024 at 2246: Sinus rhythm 88 bpm. Septal infarct. Nonspecific ST abnormality. Artifact. Poor R wave progression. ECG 01/27/2024 at 0005: Sinus rhythm 73 bpm. PVCs poor R wave progression. Septal infarct. Nonspecific ST abnormality. Labs reviewed and notable for elevated high-sensitivity troponin, with highest value 556 on presentation and since trending downward; normal renal function, normal potassium, normal transaminase levels, normal TSH, mild anemia. History and physical report reviewed. Chest x-ray 01/26/2024: Interstitial/vascular thickening suggestive of mild pulmonary edema per radiology. Bibasilar densities and trace bilateral pleural effusions have progressed per radiology. CT chest 01/26/2024: Small bilateral pleural effusions. Right lower lobe glass opacities. Suspected mild interstitial pulmonary edema. Per radiology. Medications Administered Current Inpatient Medications Acetaminophen (Acetaminophen 325 Mg Tab) 650 mg PO Q4H PRN PRN Reason: Pain Stop: 02/25/24 14:43 Albuterol (Albuterol Hfa 8 Gm Inhaler) 1 puffs INH QID PRN PRN Reason: shortness of breath or wheezing Stop: 02/25/24 09:52 Benzonatate (Benzonatate 100 Mg Capsule) 100 mg PO TID PRN PRN Reason: Cough Stop: 02/25/24 14:42 Calcium/Vitamin D (Calcium 600mg + Vit D 400 Iu Tab) 2 tab PO DAILY SHASHI Stop: 02/25/24 09:52 Last Admin: 01/27/24 08:16 Dose: 2 tab Clopidogrel Bisulfate (Clopidogrel Bisulfate 75 Mg Tab) 75 mg PO DAILY@1730 [facility] Stop: 02/25/24 17:29 Last Admin: 01/26/24 17:06 Dose: 75 mg Dextrose (Dextrose 50% 50 Ml Syringe) 25 - 50 ml IV UD PRN; Protocol PRN Reason: Hypoglycemia Protocol Stop: 02/25/24 14:29 Enoxaparin Sodium (Enoxaparin Inj 40 Mg/0.4 Ml Syr) 40 mg SQ Q24H [facility] Stop: 02/25/24 10:59 Last Admin: 01/27/24 11:55 Dose: Not Given Enzalutamide (Enzalutamide) 1 each PO DAILY [facility]; Protocol Stop: 02/26/24 08:59 Last Admin: 01/27/24 08:13 Dose: 1 each Fluticasone Propionate (Fluticasone Propionate Na Spr 16 Gm Btl) 2 sprays HILARIO BID [facility] Stop: 02/25/24 09:52 Last Admin: 01/27/24 08:16 Dose: 2 sprays Glucagon (Glucagon For Inj 1 Mg Vial) 1 mg SQ UD PRN; Protocol PRN Reason: Hypoglycemia Protocol Stop: 02/25/24 14:29 Glucose (Glucose 40% Gel 15 Gm Tube) 15 - 30 gm PO UD PRN; Protocol PRN Reason: Hypoglycemia Protocol Stop: 02/25/24 14:29 Glucose (Glucose 10 Tab/Tube) 4 - 8 tab PO UD PRN; Protocol PRN Reason: Hypoglycemia Treatment Stop: 02/25/24 14:29 Azithromycin 500 mg/ Dextrose 255 mls @ 125 mls/hr IV Q24H [facility] Stop: 02/02/24 18:44 Last Infusion: 01/27/24 01:26 Dose: Infused Methylprednisolone 40 mg/ (Syringe) 0.64 mls @ 1.5 mls/min IV BID [facility] Stop: 02/25/24 20:59 Last Admin: 01/27/24 08:18 Dose: 1.5 mls/min Insulin Aspart (Insulin Aspart Per Unit Charge) 0 units SC ACHS [facility] Stop: 02/25/24 16:29 Last Admin: 01/27/24 11:57 Dose: Not Given Insulin Glargine (Lantus Per Unit Charge) 7 units SQ BID [facility] Stop: 02/25/24 20:59 Last Admin: 01/27/24 08:17 Dose: 7 units Lisinopril (Lisinopril 20 Mg Tab) 20 mg PO DAILY [facility] Stop: 02/25/24 09:52 Last Admin: 01/27/24 08:17 Dose: 20 mg Melatonin (Melatonin 3 Mg Tab) 3 mg PO HS PRN PRN Reason: Sleep Stop: 02/25/24 14:43 Metoprolol Succinate (Metoprolol Succ 50mg Ext Rel Tab) 200 mg PO DAILY@1730 [facility] Stop: 02/25/24 17:29 Last Admin: 01/26/24 17:06 Dose: 200 mg Miscellaneous (Enzalutamide [Xtandi] 40 Mg - Order Awaiting Action) 1 each N/A QS [facility] Stop: 02/25/24 10:14 Last Admin: 01/27/24 08:15 Dose: Not Given Miscellaneous (Carbohydrates For Hypoglycemia ) 15 - 30 gm PO UD PRN PRN Reason: Hypoglycemia Protocol Stop: 02/25/24 14:29 Multivitamins/Minerals (Cerovite Adv Formula Tab) 1 tab PO DAILY [facility] Stop: 02/25/24 09:52 Last Admin: 01/27/24 08:18 Dose: 1 tab Nitroglycerin (Nitroglycerin Sl 0.4 Mg/Tab Tab) 0.4 mg SL UD PRN PRN Reason: Chest Pain Stop: 02/25/24 09:52 Last Admin: 01/26/24 22:17 Dose: 0.4 mg Ondansetron HCl (Ondansetron 4 Mg Od Tab) 4 mg PO Q6H PRN PRN Reason: Nausea Stop: 02/25/24 14:43 Pantoprazole Sodium (Pantoprazole 40 Mg Tab) 40 mg PO MoWeFr@0900 [facility] Stop: 02/26/24 08:59 Last Admin: 01/27/24 08:18 Dose: 40 mg Polyethylene Glycol (Polyethylene (Miralax) 17 Gm Pack) 17 gm PO DAILY PRN PRN Reason: Constipation Stop: 02/25/24 14:43 Rosuvastatin Calcium (Rosuvastatin Calcium 20 Mg Tab) 20 mg PO DAILY@1730 [facility] Stop: 02/25/24 17:29 Last Admin: 01/26/24 17:07 Dose: 20 mg Tamsulosin HCl (Tamsulosin Hcl 0.4 Mg Cap) 0.4 mg PO QPM [facility] Stop: 02/25/24 20:59 Last Admin: 01/26/24 20:44 Dose: 0.4 mg Vitamin D (Cholecalciferol 25 Mcg (1000 Units) Tab) 50 mcg PO DAILY [facility] Stop: 02/25/24 09:52 Last Admin: 01/27/24 08:15 Dose: 50 mcg Zinc Sulfate (Zinc Sulfate 220 Mg Capsule) 50 mg PO Q2D@0900 [facility] Stop: 02/25/24 10:14 Last Admin: 01/26/24 14:23 Dose: Not Given PG Care Time/CCT Total # of Minutes Spent Total Time Spent with Patient: Total time spent is greater than 50% in coordination of care (as documented) at patient's floor/unit and/or counseling patient: Coding Level of Care Code 24705 INT INP/OBS CARE 3/75MIN Diagnoses Acute HFrEF (heart failure with reduced ejection fraction) I50.21 Elevated troponin I level R79.89 CAD (coronary artery disease) I25.10 S/P coronary artery stent placement Z95.5 Ischemic cardiomyopathy I25.5 HLD (hyperlipidemia) E78.5 Angina pectoris I20.9
[2024-01-27] MEDS: CLOPIDOGREL BISULFATE 300 MG TAB ONE (14:19)
--- NOTE | 2024-01-27 14:31 | Post Anesthesia Assessment ---
Date of Service January 27, 2024 Post Sedation Assessment Vital Signs Temp Pulse Pulse Resp BP BP Pulse Ox 01/27/24 11:00 98.1 F 84 20 110/61 96 01/27/24 08:00 01/27/24 07:01 98.1 F 46 L 20 107/61 95 01/27/24 03:21 97.7 F 70 18 108/63 92 01/27/24 00:42 01/27/24 00:38 97.6 F 77 20 112/77 93 01/27/24 00:00 77 01/26/24 23:44 96 01/26/24 23:00 78 142/94 H 01/26/24 22:49 90 01/26/24 22:26 92 01/26/24 22:20 91 01/26/24 22:09 80 01/26/24 22:05 98.4 F 79 18 113/78 89 L 01/26/24 20:04 97.3 F L 86 20 121/78 94 01/26/24 19:30 01/26/24 15:19 112 H 01/26/24 14:56 Pulse Ox O2 Del Method O2 Del Method O2 Flow Rate 01/27/24 11:00 Room Air 01/27/24 08:00 Nasal Cannula 01/27/24 07:01 Nasal Cannula 2 01/27/24 03:21 Nasal Cannula 2.0 01/27/24 00:42 Nasal Cannula 2 01/27/24 00:38 Nasal Cannula 2 01/27/24 00:00 01/26/24 23:44 Nasal Cannula 2 01/26/24 23:00 01/26/24 22:49 Nasal Cannula 4 01/26/24 22:26 Nasal Cannula 2 01/26/24 22:20 Nasal Cannula 3 01/26/24 22:09 01/26/24 22:05 Room Air 01/26/24 20:04 Room Air 01/26/24 19:30 Room Air 01/26/24 15:19 01/26/24 14:56 94 Room Air Recovery Score Activity: Moves 4 extremities Respiration: Deep Breath/Cough Circulation: +/-20% PreAnes Value Consciousness: Fully Awake Oxygen Saturation: O2 needed for >90% Discharge Sedation Level of Care: Fast Track Phase II Post Sedation Plan On clinical assessment, the patient appears to have tolerated the sedation without complications. Patient is recovering as anticipated. Patient will continue to be monitored by nursing and may be discharged when sedation discharge criteria are met per below protocol. Upon Completions of procedure up to 15 minutes continue every 5 minute vital signs and the P.A.R. score; then discharge to a Phase I or Fast Track to Phase II per the following guidelines: * Discharge Patient to appropriate Phase II area if PAR is 8 or greater or return to pre- procedure baseline. The post - procedure orders will be as directed. * If PAR score is less than 8 or not return to pre-procedure baseline then patient will follow Phase I monitoring till PAR is reached for Phase II. The Phase I may be done in procedure room or may call to secure a Phase I area. * If naloxone or flumazenil are used for reversal, hold in Phase I for continued monitoring from when last reversal dose was given for a minimum of 60 minutes or longer pending the nurse and/or physician discretion of patient condition before discharge to Phase II. Please call the Sedation Physician to re-evaluate and complete post-note for discharge to Phase II area. Do NOT discharge from procedure sedation or Phase 1 until post- sedation evaluation note is complete by procedure /sedation MD Sedation Discharge Instructions to be given to the patient at discharge to home.
--- NOTE | 2024-01-27 14:44 | Cardiac Catheterization ---
[facility] Data: Pediatric Audiologist Cardiac Status Clinical evaluation leading to the procedure CAD Presenation: Non STEMI Diagnostic Physicians Name: Lion Ragland MD Closure Device Recommendations: Medical Therapy and/or Counseling Cardiac Cath Procedure Full Procedure Date January 27, 2024 Pre-Procedure Diagnosis Pre-Procedure Diagnosis: Non STEMI and Cardiomyopathy AUC Score AUC Score: 7 Post-Procedure Diagnosis Post-Procedure Diagnosis: Severe CAD, Successful PCI and Normal Intracardiac Pressures Procedure(s) Performed Procedure(s) Performed: Coronary Angiography, Left Heart Cath and Drug Eluting Stent Butcher Assistant Lion Ragland MD Cushion Assembler(s) Coby Estimated Blood Loss Estimated Blood Loss: 10 Medication(s) Medication(s): Clopidogrel, Fentanyl, Heparin, Lidocaine 1%, Nicardipine, Nitroglycerin and Versed Summary of Findings Indication: Accelerating angina, ACS, worsening LV dysfunction Access: 6 Fr slender right radial artery Catheters: [place], AR-1, 5 Fr EBU 3.5 guide Findings: LM -normal caliber, no significant disease LAD -medium caliber, calcified, 30-40% proximal disease prior to previous stents. Earlymid LAD stent patent with with mild in-stent restenosis up to 30%. 30-40% mid stenosis at takeoff of D3. Distal vessel without significant disease and extends around apex. Small to medium D2, D3 without significant disease. Circumflex -medium caliber vessel, distal 7080 % stenosis prior to takeoff OM 3. High medium caliber OM1 40% ostial. Small to medium OM 3 without significant disease. RCA -dominant, high anterior takeoff, large caliber diffuse mid segment disease up to 50 % at crux just after takeoff of RV branch, distal luminal irregularities. PDA, RPLB without significant disease LVEDP -14 -- PCI -- Antithrombotic therapy: Heparin, clopidogrel Procedure: Left main cannulated with a 5 Fr EBU 3.5 guide Pre-procedure flow SIGRID 3 [place] blue wire passed across lesion into distal vessel Distal circumflex lesion predilated with 2.0 compliant balloon Dilated lesion stented with 2.5 x 18 mm Antione drug-eluting stent Stent post-dilated with 2.75 noncompliant balloon IC vasodilators administered for spasm Post procedure SIGRID 3 flow, stent well expanded with minimal residual stenosis and no apparent cardiac complications. Arterial Closure: TR band Summary: 1. Multivessel coronary artery disease -75% distal circumflex Patent earlymid LAD stent with mild ISR up to 30%. 35% proximal, mid after D3 LAD disease Diffuse mid RCA up to 50% 2. Normal intracardiac filling pressure 3. Successful PCI of distal circumflex with single drug-eluting stent (2.5 x 18 mm [place] MA: Postdilated with 2.75 NC). Recommendations: To PCU for continued monitoring Reloaded with clopidogrel 300 mg in Pediatric Audiologist Continue dual-antiplatelet therapy for at least 1 year Heart failure regimen optimization per Dr. Gan Consult cardiac Rehab Hemodynamics Rest Ao:: 94/45/ Final Ao: 101/50/69 LV: 91/14 Recommendations Recommendations: Medical Therapy and/or Counseling Radiation Exposure (mGy) 2486 Contrast (mls) 110 Anesthesia Moderate 9313-7115 Procedural Complication(s) None Disposition PCU I attest to the content of the Intraoperative Record and any orders documented therein. Any exceptions are noted below. [facility] Card Cath Procedure Codes Cardiac Catheterization Procedure 1: Cardiovascular Cath Procedures: 27723 Coronaries and LHC (+/-LV) Moderate Sedation Procedure 1: Sedation/Anesthesia: 36757 Mod Sedation by the same physician;Init15 Min Child Age 5 & Up Procedure 2: Sedation/Anesthesia: 81855 Mod Sedation by the same physician; Ea [id number] Minutes Stenting Procedure 1: Cardiovascular Stent Procedures: 58592 Perc transcatheter placement of intracoronary stent(s), with ang PG Care Time/CCT Total # of Minutes Spent Total Time Spent with Patient: Total time spent is greater than 50% in coordination of care (as documented) at patient's floor/unit and/or counseling patient:
[2024-01-27] MEDS: SPIRONOLACTONE 25 MG TAB PO SCH (16:13)
[2024-01-27] MEDS: EMPAGLIFLOZIN 10 MG TAB PO SCH (16:14)
--- NOTE | 2024-01-27 21:44 | Electrocardiogram Report ---
Test Reason : Blood Pressure : */* mmHG Vent. Rate : 80 BPM Atrial Rate : 80 BPM P-R Int : 154 ms QRS Dur : 92 ms QT Int : 396 ms P-R-T Axes : 74 56 110 degrees QTcB Int : 456 ms Poor data quality, interpretation may be adversely affected Normal sinus rhythm Possible Left atrial enlargement Low voltage QRS Septal infarct (cited on or before 03-Feb-2005) Lateral infarct (cited on or before 03-Feb-2005) Abnormal ECG When compared with ECG of 26-Jan-2024 06:14, Premature ventricular complexes are no longer Present Confirmed by Guilherme Gan ([id number]) on 01/27/2024 9:44:26 PM Referred By: REFERRED SELF Confirmed By: Guilherme Gan
--- NOTE | 2024-01-27 21:46 | Electrocardiogram Report ---
Test Reason : Blood Pressure : */* mmHG Vent. Rate : 77 BPM Atrial Rate : 77 BPM P-R Int : 148 ms QRS Dur : 94 ms QT Int : 406 ms P-R-T Axes : 77 58 111 degrees QTcB Int : 459 ms Normal sinus rhythm Possible Left atrial enlargement Low voltage QRS Anterior infarct (cited on or before 03-Feb-2005) Abnormal ECG When compared with ECG of 26-Jan-2024 22:10, Questionable change in initial forces of Anterolateral leads Confirmed by Guilherme Gan ([id number]) on 01/27/2024 9:46:06 PM Referred By: REFERRED SELF Confirmed By: Guilherme Gan
--- NOTE | 2024-01-27 21:48 | Electrocardiogram Report ---
Test Reason : Blood Pressure : */* mmHG Vent. Rate : 88 BPM Atrial Rate : 88 BPM P-R Int : 146 ms QRS Dur : 92 ms QT Int : 372 ms P-R-T Axes : 65 60 144 degrees QTcB Int : 450 ms Poor data quality, interpretation may be adversely affected Normal sinus rhythm Possible Left atrial enlargement Low voltage QRS Anterior infarct Abnormal ECG When compared with ECG of 26-Jan-2024 22:12, No significant change was found Confirmed by Guilherme Gan ([id number]) on 01/27/2024 9:47:53 PM Referred By: REFERRED SELF Confirmed By: Guilherme Gan
--- NOTE | 2024-01-27 21:50 | Electrocardiogram Report ---
Test Reason : Blood Pressure : */* mmHG Vent. Rate : 73 BPM Atrial Rate : 73 BPM P-R Int : 154 ms QRS Dur : 94 ms QT Int : 428 ms P-R-T Axes : 70 56 120 degrees QTcB Int : 471 ms Sinus rhythm with frequent Premature ventricular complexes Possible Left atrial enlargement Low voltage QRS Anterior infarct Abnormal ECG When compared with ECG of 26-Jan-2024 22:46, Premature ventricular complexes are now Present T wave inversion no longer evident in Inferior leads Confirmed by Guilherme Gan ([id number]) on 01/27/2024 9:50:09 PM Referred By: REFERRED SELF Confirmed By: Guilherme Gan
--- NOTE | 2024-01-28 07:38 | Hospitalist Progress Note ---
Date of Service January 28, 2024 Assessment & Plan (1) Elevated troponin I level: (2) Cough: (3) Chest pain: (4) Prostate cancer metastatic to bone: (5) Ischemic cardiomyopathy: (6) CAD (coronary artery disease): (7) S/P coronary artery stent placement: (8) Type 2 diabetes mellitus: (9) Diaphoresis: Plan Patient is a 78-year-old male with past medical history of prostate cancer, CAD (stent placement in LAD around 15 years ago), TIA x 2 (2021), DM-II, tobacco use without history of COPD (stopped smoking around 2 years ago), and GERD who was admitted due to chest pain. Chest pain - aching sensation in substernal region that has been present for a few months, started randomly in October - Troponins elevated at time of arrival in 550s and then decreased to 450s, today - No friction rub or changes in chest ache when laying down or sitting up - Follows w/ cardiology; last TTE from 03/2023 showing severely dilated LV with severely reduced systolic function. EF 30-35%. Akinesis of the apex, mid anteroseptum, and mid inferolateral wall segments. Otherwise, global hypokinesis with severe hypokinesis of the basal inferolateral wall. Mild LVH. Mild to moderate MR. - Repeat TTE showed EF 25-30% but otherwise noted ot be essentially unchanged from one in 2022 - Given hx of radiation therapy, possible this may be playing a role in both his chest "pain" and cough (radiation pneumonitis?) - chest CT showed small bilateral pleural effusions, mild interstitial pulm edema, mediastinal nodes - Symptom control for now, seemed to improve from yesterday significantly, pt was given nitro and lasix so hard to tell which helped him ultimately - cardiac vs GERD vs radiation consequence are some etiologies possibly at play, cardiology consulted Diaphoresis - suspect this is possibly due to taking enzalutamide, as hot flashes are noted in 13-27% per UTD as opposed to cardiac in nature, but cannot r/o CAD given pt hx - will consult cardio for episode of diaphoresis and concern for atypical chest pain Cough - Chronic (contributing to chest pain from chest wall strain?) - Occasionally productive - DDx include effects of radiation therapy, un-diagnosed lung disease given smoking hx, viral cause, or other etiology - Will evaluate further w/ chest CT as detailed above - Zara bergman for sxs control DM-II - Hgb A1c was 5.8% (10/2023) - Hold home meds - Lantus and SSI CAD // Ischemic cardiomyopathy Hx of TIA - Continue home clopidogrel, lisinopril, metoprolol, and rosuvastatin GERD - Continue Pantoprazole 40 mg PO VTE ppx: Lovenox Admission and Anticipated Discharge Date Admission Date: January 26, 2024 Review of Systems Review of Systems: Per HPI. Physical Exam Physical Exam: General:Alert and oriented, no acute distress, HEENT: Normocephalic, moist oral mucosa, Cardio: Regular rate and rhythm Resp:Lungs clear to auscultation b/l, no wheezes or rhonchi, GI: Soft and nontender, Skin: Warm, pink, dry, Results & Data Results & Data Vital Signs (Past 12 Hours) Vital Signs Temp Pulse Pulse Resp BP Pulse Ox O2 Del Method 01/28/24 04:25 36.4 C L 75 20 109/73 95 Room Air 01/27/24 23:47 36.5 C 59 L 18 105/66 95 Room Air 01/27/24 21:42 71 01/27/24 21:30 Room Air
[2024-01-28 07:41] LABS: BUN Creatinine Ratio 20.8 (10-20); Calcium 8.7 mg/dl (8.6-10.3); Creatinine Clr Calc Pharmacy 65.5 ml/min; Est GFR (African American) 88.6 ml/min; Est GFR (Non-African American) 76.5 ml/min
[2024-01-28] MEDS: FUROSEMIDE 20 MG TAB PO SCH (08:15)
[2024-01-28 08:26] VITALS: RESP 17; O2SAT 94
[2024-01-28 10:46] VITALS: TEMP 97.3
--- NOTE | 2024-01-28 11:47 | Discharge Summary ---
Date of Service January 28, 2024 Admission HPI Per Admitting Provider Patient is a 78-year-old male with past medical history of prostate cancer, CAD (stent placement in LAD around 15 years ago), TIA x 2 (2017, 2021), DM-II, tobacco use without history of COPD (stopped smoking around 2 years ago), and GERD who came to the emergency department after waking up with substernal chest pain. Patient describes the sensation as more of an ache in the substernal region without radiation that is constant and not affected by positional changes. He has had this ache for a while but it has never woken him up before such as it did this time, which prompted him to go to the ED. Patient denies any other associated symptoms to this aching chest. Also refers having cough that has lasted for few months that has been on most occasions productive of sputum. Patient was recently treated for Lyme disease and finished his 21-day course of doxycycline a few weeks ago. Has not had any recurrence of the symptoms since then. Of note, patient began treatment for prostate cancer after he came back on follow-up 2022. Patient was treated with radiation therapy over his cervical region after they noted a lesion on C5, and also got radiation therapy over his anterior chest because of some suspicious lesions on his right lung". Aside from radiation therapy, patient has been treated with leuprolide every 3 months (last dose was 2 weeks ago) and Xtandi. Patient denies having any fevers, chills, nausea, vomiting, diarrhea, abdominal pain, joint pain, weakness, or any other symptom. ED Course: EKG done x 2 without significant change between them and now specific ST wave changes, magnesium replacement with 1 g IV Labs/Imaging: CBC with no leukocytosis, hemoglobin of 12.2, platelets of 182. CMP without significant electrolyte abnormalities, creatinine 0.63, glucose of 155, magnesium of 1.5 (before placement), LFTs within normal limits. Troponin of 556.9 which decreased to 474.9 in 2-hour repeat. BNP of 1511. TSH of 1.82. Bio fire negative. ESR of 26. Chest x-ray with bibasilar left midlung densities that favor atelectasis or scarring without evidence of pulmonary edema. Medical History: [Reviewed] Medications: [Reviewed] Surgical History: [Reviewed] Family history: [Reviewed] Allergies: [Reviewed] Social History: [Reviewed] Admission Exam Per Admitting Provider GENERAL: AAOx3, comfortable, afebrile, NAD HEAD: AT, NC EYES: EOM intact, CAROL CHEST: no tenderness on palpation of anterior chest wall, no obvious deformity CARDIO: RRR, no r/m/g PULMONARY: CTA b/l, normal respiratory effort, no respiratory distress, breathing at room air GI: sift, nontender, nondistended EXTREMITIES: no swelling or calf tenderness in b/l LE SKIN: no rashes Principal Diagnosis CAD, HFrEF Discharge Exam General:Alert and oriented, no acute distress, HEENT: Normocephalic, moist oral mucosa, Cardio: Regular rate and rhythm Resp:Lungs clear to auscultation b/l, no wheezes or rhonchi, GI: Soft and nontender, Skin: Warm, pink, dry, Discharge Data Allergies Allergy/AdvReac Type Severity Reaction Status Date / Time No Known Drug Allergies Allergy Unknown Verified 12/05/23 14:04 Consultations 01/26/24 07:35 ED Decision to Admit Stat 01/27/24 10:37 Consult Cardiology Routine 01/27/24 14:34 [facility] CHF Program Referral Routine Procedures Performed Operation Date: 01/27/24 13:15 Actual Procedures s Cineradiography w/Routine Exam - Lion Ragland MD p Cath, Left with Cors and Vent - Lion Ragland MD p Drug Eluting Stent SGl Vessel - Lion Ragland MD Ordered Studies 01/26/24 13:31 CT chest diagnostic wo con Routine 01/27/24 12:58 CL Cath Imgs for PACS use only Stat Hospital Course (1) Elevated troponin I level: (2) Cough: (3) Chest pain: (4) Prostate cancer metastatic to bone: (5) Ischemic cardiomyopathy: (6) CAD (coronary artery disease): (7) S/P coronary artery stent placement: (8) Type 2 diabetes mellitus: (9) Diaphoresis: Plan Patient is a 78-year-old male with past medical history of prostate cancer, CAD (stent placement in LAD around 15 years ago), TIA x 2 (2017, 2021), DM-II, tobacco use without history of COPD (stopped smoking around 2 years ago), and GERD who was admitted due to chest pain. Coronary artery disease - aching sensation in substernal region that has been present for a few months, started randomly in October - Troponins elevated at time of arrival in 550s which was the peak - No friction rub or changes in chest ache when laying down or sitting up, no weight change - Follows w/ cardiology; last TTE from 03/2023 showing severely dilated LV with severely reduced systolic function. EF 30-35%. Akinesis of the apex, mid anteroseptum, and mid inferolateral wall segments. Otherwise, global hypokinesis with severe hypokinesis of the basal inferolateral wall. Mild LVH. Mild to moderate MR. - Repeat TTE showed EF 25-30%, cardiology consulted and cardiac cath performed with placement of LCX stent - symptoms resolved after stent placement and pt felt well and wanted to go home Cough - Chronic, has been going on for months - DDx include effects of radiation therapy, un-diagnosed lung disease given smoking hx, viral cause, or other etiology - given 500 mg azithromycin IV for 2 days - CXR 01/25 showed some basilar opacities and pulm edema/congestion, most likely I suspect his cough his congestive in nature, has been afebrile on room air, started on lasix daily by cardio Medication changes from this visit: * aspirin 81 mg daily * entresto 24-26 mg tablet twice daily * furosemide 20 mg daily * jardiance 10 mg daily * spironolactone 25 mg daily * Please STOP taking lisinopril, as Entresto will take over the roll of this medication * Please HOLD Xtandi until he discusses with his oncologist about the risks vs benefits of this medication in the setting of heart disease Total Time Total Time Spent Total Time Spent (In Minutes): As per attending attestation. Discharge Plan Discharge Items Patient Disposition: Home - Self-Care Reason For Visit: ELEVATED TROPONIN Discharge Diagnosis: Coronary artery disease, HFrEF Activity: As commented below Activity Comment: As tolerated Non-emergency contact: Primary Care Provider and Preventive Medicine Specialist Call non-emergency contact if: you have any medication questions, your pain is worsening and your temperature is above 101.5 Follow-up/Referrals: Ross Jacobo DO [Primary Care Provider] - 02/03/24 3:00 pm (Scheduled with NATANAEL Lange on 02/03/24 at 3:00 pm. New office location: [address] [place] [address] Dr[address] Floor, [facility] [address]) Bindu Corral PA-C [Physician Icu Staff Nurse] - 02/03/24 10:30 am (Congestive Heart Failure Program Appointment Information Early follow up is essential to managing your heart failure. An appointment has been scheduled for you with the [facility] Heart Failure Program within 7 days of discharge. Anticipate this visit to be 30-60 minutes long. Please expect a associate faculty phone call from one of our nurses approximately 48 hours from discharge. They will also be placing an order for lab work to be completed 1-2 days prior to your heart failure follow up appointment. Please be sure to have this done so we can go over the results when you come in. Office Location The cardiology office building is located in front of the hospital at [address] Bring the following with you to your follow-up doctor appointments: Please bring your daily weight log any discharge paperwork all of your medication bottles with you to this visit. ) Diet: Heart Healthy and Low Sodium (2gm) Addtl Attending Provider Instructions: You were admitted to the hospital for chest pain and while you were here, an ultrasound of the heart was done which again shows a low ejection fraction (lower than normal squeezing function of the heart) and a catheterization was done with a stent placed. As you have done well overnight and your symptoms you came in with have now resolved, we feel it is safe for you to go home and follow-up with a travel occupational therapist and with your primary care physician when you leave the hospital in the coming days/week or two. The most important things after a cardiac catheterization with stent placement is following a heart- healthy diet, exercising, and keeping up with medications advised by cardiology. Due to your low ejection fraction of the heart, you should also plan to follow a low-salt diet to avoid extra build up of fluid in the body, which can cause you to gain weight quickly and feel short of breath. Medication changes from this visit: * aspirin 81 mg daily * entresto 24-26 mg tablet twice daily * furosemide 20 mg daily * jardiance 10 mg daily * spironolactone 25 mg daily * Please STOP taking lisinopril, as Entresto will take over the roll of this medication * Please HOLD your Xtandi until you discuss with your oncologist about the risks vs benefits of this medication in the setting of heart disease Pending Studies at Discharge: No Stand-Alone Forms: My [facility] Medications and DC Order Prescriptions: New spironolactone 25 mg Tablet 25 mg PO QAM Qty: 30 1RF furosemide 20 mg Tablet 20 mg PO QAM Qty: 30 1RF Jardiance 10 mg Tablet 10 mg PO DAILY Qty: 30 1RF Entresto 24-26 mg Tablet 1 tab PO BID Qty: 60 1RF aspirin 81 mg capsule 81 mg PO DAILY Qty: 30 1RF Continued nitroglycerin [Nitrostat] 0.4 mg tablet, sublingual 0.4 mg sublingual .PRN/UD PRN (Reason: Chest Pain) Qty: 20 0RF Rx Instructions: NEEDED FOR CHEST PAIN : ONE TABLET UNDER THE TONGUE EVERY 5 MMINUTES UP TO THREE DOSES. sildenafil [Viagra] 25 mg tablet 50 mg PO DAILY PRN (Reason: erectile dysfunction) Qty: 30 2RF Rx Instructions: administer 30 minutes to 4 hours before activity clopidogrel 75 mg tablet See Rx Instructions .ROUTE .COMPLEX Qty: 90 3RF Dose Instruction: TAKE 1 TABLET BY MOUTH EVERY DAY Rx Instructions: TAKE 1 TABLET BY MOUTH EVERY PM rosuvastatin 40 mg tablet See Rx Instructions .ROUTE .COMPLEX Qty: 90 3RF Dose Instruction: TAKE 1 TABLET BY MOUTH EVERY DAY Patient Comments: takes pm Rx Instructions: TAKE 1 TABLET BY MOUTH EVERY DAY metoprolol succinate 200 mg tablet extended release 24 hr 200 mg PO QAM Qty: 90 3RF Rx Instructions: pm per pt tamsulosin 0.4 mg capsule 0.4 mg PO QPM Qty: 90 3RF Janumet 50-1,000 mg tablet 1 tab PO BID Qty: 180 3RF pantoprazole [Protonix] 40 mg tablet,delayed release (DR/EC) 40 mg PO .3xWEEKLY Qty: 90 1RF Rx Instructions: [id number] Centrum Silver 0.4 mg-300 mcg- 250 mcg tablet 1 tab PO DAILY cholecalciferol (vitamin D3) 50 mcg (2,000 unit) capsule 50 mcg PO DAILY zinc 50 mg tablet 50 mg PO .QOD Rx Instructions: [id number] calcium caltrate 1,200 mg PO DAILY diclofenac sodium 1 % gel 2 g topical QID PRN (Reason: pain, moderate) Qty: 100 2RF quercetin 500 mg capsule 500 mg PO .QOD Qty: 30 0RF Rx Instructions: [id number] triamcinolone acetonide 0.1 % cream 1 applic topical BID Qty: 15 0RF Rx Instructions: PRN Held Xtandi 40 mg capsule 80 mg PO DAILY Hold Instructions: Resume on 03/26/24. Hold this medication until discussed the risks vs benefits with your oncologist given heart disease Rx Instructions: specialty med, can bring in Discontinued lisinopril 20 mg tablet 20 mg PO DAILY Qty: 90 3RF Discharge Orders: Discharge Order (Routine); Ordered 01/28/24 Ordered By: Yumiko Lam Admission Data Admit Date/Time: 01/26/24 07:42 Attending Provider: Jd Davenport Admit Provider: Eusebio Montanez Primary Care Provider: Ross Jacobo Other Providers: Eusebio Montanez; Bindu Corral; Merlin Mendieta; Alberto Wellington; Dung Gutierres; Tk Carrillo; Kenji Chaudhary; Adarsh Umanzor Jr; Guilherme Gan; Becki Vasquez; Yuliana Barrientos; Lion Ragland; Lion Tariq; Kendell Avina; Nicko De La Torre; Brisa Fonseca; Huy Ball.; Sergio Blanchard; Bob Rodney; Leobardo Lilly Other Interventions: Discharge Summary Assessment (RN) Last Done: 01/28/24 16:04 Supervising Physician Co-Signing Physician Notes ATTESTATION I also saw the patient and confirmed rubi portions of the history and exam. I agree with the impression and plan in the resident documentation, and as summarized below. Upon our exam this morning, the patient is without complaints. He has been ambu latory around his room and the floor without any chest pain or dyspnea. He is looking forward to discharge. EXAM 109/73, 94, 17, 36.3, 94% on room air Pleasant and alert. No distress upon my exam. Heart regular rate and rhythm Lungs clear throughout with nonlabored respirations IMPRESSION & PLAN CAD, Status post stent to circumflex (01/27/2024) Acute heart failure with reduced ejection fraction Metastatic prostate cancer Medical regimen adjusted to include Entresto, Jardiance, spironolactone, and Lasix. Remains on a beta-williams as well. Continue dual antiplatelet therapy for 1 year Continue high-dose rosuvastatin Stop Xtandi until sees oncology again Follow-up with PCP and cardiology postdischarge Additional per resident documentation Resident Activity Tracking Resident Involvement: Resident Care Provided Care Provided: Adult Hospital Medicine
--- NOTE | 2024-01-28 15:34 | Cardiology Progress Note ---
Date of Service January 28, 2024 Assessment & Plan (1) Acute HFrEF (heart failure with reduced ejection fraction): (2) Elevated troponin I level: (3) CAD (coronary artery disease): (4) S/P coronary artery stent placement: (5) Ischemic cardiomyopathy: (6) HLD (hyperlipidemia): (7) Angina pectoris: Plan ASSESSMENT/PLAN: 1. Acute heart failure with reduced EF: Presentation and then response to diuretic therapy, suggests heart failure. He seems to recovered well. His medical regimen was intensified to include Entresto, Jardiance, spironolactone and a daily dose of Lasix. He will continue his metoprolol succinate. 2. CAD s/p LAD PCI: Had chest discomfort and elevated troponin with new heart failure diagnosis. He underwent percutaneous intervention to his circumflex yesterday. No symptoms currently. He will continue on dual antiplatelet therapy preferably for 1 year. Continue aggressive risk factor modification and high-dose rosuvastatin 3. Elevated troponin: Status post PCI to the circumflex. 4. Cardiomyopathy: Ischemic. He has declined ICD for primary prevention. Medical regimen intensified as noted above. 5. Dyslipidemia: Most recent LDL was excellent. Continue high intensity statin therapy. Admission and Anticipated Discharge Date Admission Date: January 26, 2024 Subjective This afternoon the patient was seen in his room. He had already gotten dressed in anticipation of discharge. 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 He did not describe discomfort at the right radial access site. No breathing difficulty. No recurrent symptoms of chest discomfort. No dizziness or lightheadedness. Review of Systems Review of Systems: Per HPI Physical Exam Physical Exam: Gen.: No acute distress. Alert and oriented. HEENT: Anicteric sclera. Neck: No JVD. No hepatojugular reflux. Cardiac: No ventricular heave. Regular with occasional ectopy. Normal S1-S2. Pulmonary: Clear to auscultation bilaterally without wheezes, rales, or rhonchi. Extremities: 2+ radial pulses bilaterally. Good perfusion of the right hand. No hematoma. 2+ posterior tibialis pulses bilaterally. No edema. No cyanosis. Psychiatric: Affect appears appropriate. Results & Data Vital Signs (Past 12 Hours) Vital Signs Temp Pulse Resp BP BP Pulse Ox O2 Del Method 01/28/24 13:58 01/28/24 10:46 36.3 C L 79 17 105/62 94 Room Air 01/28/24 08:25 36.7 C 68 17 121/72 94 Room Air 01/28/24 04:25 36.4 C L 75 20 109/73 95 Room Air O2 Del Method 01/28/24 13:58 Room Air 01/28/24 10:46 01/28/24 08:25 01/28/24 04:25 Laboratory Results Abnormal Lab Results 01/27/24 01/27/24 01/28/24 16:04 20:33 06:43 Sodium 137 Potassium 4.0 Chloride 103 Carbon Dioxide 28 Anion Gap 6 BUN 20 Creatinine 0.96 Est Cr Clr Drug Dosing 65.5 Est GFR ( Amer) 88.6 Est GFR (Non-Af Amer) 76.5 BUN/Creatinine Ratio 20.8 H Glucose 106 H POC Glucose 152 H 164 H Calcium 8.7 01/28/24 01/28/24 07:10 11:27 Sodium Potassium Chloride Carbon Dioxide Anion Gap BUN Creatinine Est Cr Clr Drug Dosing Est GFR ( Amer) Est GFR (Non-Af Amer) BUN/Creatinine Ratio Glucose POC Glucose 117 H 100 H Calcium PG Care Time/CCT Total # of Minutes Spent Total Time Spent with Patient: Total time spent is greater than 50% in coordination of care (as documented) at patient's floor/unit and/or counseling patient: Coding Level of Care Code 91936 SUB INP/OBS CARE 2/35MIN Diagnoses Acute HFrEF (heart failure with reduced ejection fraction) I50.21 Elevated troponin I level R79.89 CAD (coronary artery disease) I25.10 S/P coronary artery stent placement Z95.5 Ischemic cardiomyopathy I25.5 HLD (hyperlipidemia) E78.5 Angina pectoris I20.9
[2024-01-28 16:07] VITALS: BP 109/73; PULSE 94
[2024-01-28] MEDS ORDERED: VALSARTAN/SACUBITRIL 26/24MG TAB PO SCH (21:00)
== END 2024-01-28 16:55 | disposition home or self-care (01) ==
LOC: ED 05:56 → EDINP 05:56 → SUATTDRO 07:42 → 2N 09:50 → 2S 01-27 00:07